=== PATIENT | female | born 1950 ===

== ENCOUNTER 2021-03-22 10:52 | Outpatient (REF) | payer MEDICARE, SELFPAY ==
[2021-03-22 14:46] LABS: Hematocrit 46.9 % (37.0-47.0); Hemoglobin 14.9 g/dl (12.0-16.0); Mean Corpuscular HGB Conc 31.8 g/dl (31.0-35.0); Mean Corpuscular Hemoglobin 30.5 pg (27.0-33.0); Mean Corpuscular Volume 96.1 fL (80.0-98.0); Mean Platelet Volume 9.7 fL (9.4-12.3); Platelet Count 269 X10*3/uL (160-400); Red Blood Count 4.88 X10*6/uL (4.20-5.50); Red Cell Distribution Width 14.6 % (11.0-16.0); White Blood Count 15.4 X10*3/uL (4.8-10.8)
[2021-03-22 15:06] LABS: Alanine Aminotransferase 20 U/L (0-31); Albumin Level 3.9 g/dL (3.5-5.0); Alkaline Phosphatase 88 U/L (39-117); Anion Gap 17 (12-20); Aspartate Amino Transferase 16 U/L (5-31); Bilirubin Total 0.4 mg/dL (0.0-1.0); Blood Urea Nitrogen 34 mg/dL (9-16); Calcium 9.5 mg/dL (8.4-10.2); Carbon Dioxide 25 mmol/L (22-29); Chloride 102 mmol/L (96-108); Estimated Glomerular Filt Rate 24; Glucose Random 147 mg/dL (60-115); Potassium 4.2 mmol/L (3.3-5.1); Sodium 140 mmol/L (135-145); Total Protein 7.8 g/dL (6.5-8.0)
[2021-03-22 15:12] LABS: B Type Natriuretic Peptide 261 pg/mL (<100)
== END 2021-03-22 10:53 | disposition home or self-care (01) ==
LOC: HO.HMGCLDS 10:52
PROVIDERS: Absent Provider Internal Medicine Cardiovascular Disease; PCP Internal Medicine; Visit Provider Internal Medicine
DX: I11.0 Hypertensive heart disease with heart failure (principal); I50.9 Heart failure, unspecified
CPT/HCPCS: 36415; 80053; 83880; 85027

== ENCOUNTER 2023-01-22 11:02 | Outpatient (AMB) | payer MEDICARE, SELFPAY ==
[2023-01-22 11:17] VITALS: BP 102/66; PULSE 54; O2SAT 99; BMI 31.4
--- NOTE | 2023-01-22 11:17 | A.OFFPC_ITS ---
Vital Signs 01/22/23 11:17 Height 5 ft 5 in Weight 189 lb BMI 31.4 BP 102/66 Blood Pressure Location Lt brachial Position Sitting Pulse 54 Pulse Source Pulse Oximeter Pulse Oximetry (%) 99 Oxygen Delivery Method Room Air Intake Visit Reasons: Hospital follow up Intake Note: Pt is here today for Hospital follow up visit. Pt states that she has fallen twice since she got out of the hospital on Sunday. Allergies No Known Allergies Allergy (Verified 01/22/23 11:20) Medication List - Last Reconciled 01/22/23 by Courtney Ding MD albuterol sulfate 2.5 mg inhalation Q4-6H PRN amlodipine 10 mg PO DAILY aspirin 81 mg PO DAILY atorvastatin 80 mg PO DAILY carvedilol 12.5 mg PO BID clonidine HCl 0.05 mg PO TID mxxrgcxkebe-aqfqfgbqq-dzkchnug 200-62.5-25 mcg 1 inh inhalation DAILY furosemide 20 mg PO DAILY hydralazine 25 mg PO TID isosorbide mononitrate ER 30 mg PO DAILY melatonin 1 mg PO BEDTIME PRN mirtazapine 15 mg PO BEDTIME omeprazole 20 mg PO DAILY prednisone 10 mg PO BID tramadol 100 mg PO BEDTIME trazodone 50 mg PO BEDTIME Tobacco use date assessed: 01/22/23 Fall risk assessment: 2 + Falls in past year Last assessed Fall Risk: 01/22/23 Dental Screening Dental Screen Date: 01/22/23 Did you have a dental visit in the last 12 months?: No Did you have a dental problem in the last 6 months where you did not have access to dental care?: No Was dental information given to patient?: Patient declined [facility] Hospital follow up HPI Details Pt presents for f/u of hospitalization for acute respiratory failure/CHF with EF 35%, and uncontrolled hypertension due to medication noncompliance for 1 year. Pt f/u with rheumatology rheumatoid arthritis treated with prednisone. [facility] Medical History CKD (chronic kidney disease), stage IV Rheumatoid arthritis COPD (chronic obstructive pulmonary disease) CAD (coronary artery disease) CHF (congestive heart failure) Family History Father Hypertension Heart attack Mother Hypertension Cancer of kidney Diabetes Social History Housing: House Patient Tobacco Use Status: Current everyday Tobacco user Cigarettes Per Day: 5 e-Cigarette/Vaping Use: Never Used Current occupational status: retired Cognitive needs: No Hearing needs: No Vision needs: Yes Questionnaire Thrive Questionnaire Date Thrive assessed: 03/04/21 AUDIT C Alcohol Use Questionnaire (AUDIT-C) 1. How often do you have a drink containing alcohol?: Never 3. How often do you have six or more drinks on one occasion?: Never Total Score: 0 Review of Systems Const All systems reviewed & are unremarkable except as noted in HPI and below Reports no additional complaints Eyes Reports no additional complaints ENT Reports no additional complaints Card Reports no additional complaints Resp Reports no additional complaints GI Reports no additional complaints Physical exam (Primary Care) Vital Signs: Last Vital Signs Pulse 54 01/22/23 11:17 BP 102/66 01/22/23 11:17 Pulse Ox 99 01/22/23 11:17 Oxygen Delivery Method Room Air 01/22/23 11:17 BMI result Body Mass Index 31.4 Tobacco/Smoking Status: Tobacco use Status Tobacco use date assessed 01/22/23 01/22/23 11:42 Patient Tobacco Use Status Current everyday Tobacco 01/22/23 11:42 e-Cigarette/Vaping Use Never Used 01/22/23 11:42 Thrive Assessment: Date of Thrive Assessment Date Thrive assessed 03/04/21 01/22/23 11:42 Const General: no acute distress HENMT Ears: hearing grossly normal bilaterally Eyes General: appearance normal, both eyes and all related structures Resp Effort & Inspection: normal respiratory effort Auscultation: clear to auscultation bilaterally Cardio Rhythm: regular rhythm Heart sounds: S1 normal heart sound present and S2 normal heart sound present GI Inspection: Yes normal to inspection Palpation (GI): Soft to palpation Percussion: Yes normal to percussion Auscultation: normal bowel sounds Assessment and Plan Assessment & Plan (1) CKD (chronic kidney disease), stage IV: Comment: Follow-up with nephrology Code(s): N18.4 - Chronic kidney disease, stage 4 (severe) Plan: Avoid NSAIDs and dehydration monitor renal function and follow-up with nephro logy (2) CAD (coronary artery disease): Comment: S/P stent LAD 02/08, Code(s): I25.10 - Atherosclerotic heart disease of [place] coronary artery without angina pectoris Plan: Continue atorvastatin (3) CHF (congestive heart failure): Comment: Echo EF 25 %. 02/08, f/u [facility] cardiology Code(s): I50.9 - Heart failure, unspecified Plan: Continue Coreg, isosorbide and hydralazine and furosemide follow-up with [facility] Cardiology (4) Essential hypertension: Code(s): I10 - Essential (primary) hypertension Plan: Continue current medications and follow-up with nephrology and cardiology (5) COPD (chronic obstructive pulmonary disease): Code(s): J44.9 - Chronic obstructive pulmonary disease, unspecified Plan: Continue Trelegy Orders: Orders TSH reflex Free T4 1 Month I10 - Essential (primary) hypertension, I25.10 - Atherosclerotic heart disease of [place] coronary artery without angina pectoris, I50.9 - Heart failure, unspecified, J44.9 - Chronic obstructive pulmonary disease, unspecified, N18.4 - Chronic kidney disease, stage 4 (severe) Comprehensive [place]. Panel Fast 1 Month I10 - Essential (primary) hypertension, I25.10 - Atherosclerotic heart disease of [place] coronary artery without angina pectoris, I50.9 - Heart failure, unspecified, J44.9 - Chronic obstructive pulmonary disease, unspecified, N18.4 - Chronic kidney disease, stage 4 (severe) Lipid Panel 1 Month I10 - Essential (primary) hypertension, I25.10 - Atherosclerotic heart disease of [place] coronary artery without angina pectoris, I50.9 - Heart failure, unspecified, J44.9 - Chronic obstructive pulmonary disease, unspecified, N18.4 - Chronic kidney disease, stage 4 (severe) Complete Blood Count Auto Diff 1 Month I10 - Essential (primary) hypertension, I25.10 - Atherosclerotic heart disease of [place] coronary artery without angina pectoris, I50.9 - Heart failure, unspecified, J44.9 - Chronic obstructive pulmonary disease, unspecified, N18.4 - Chronic kidney disease, stage 4 (severe) Vitamin D 25-OH Total 1 Month I10 - Essential (primary) hypertension, I25.10 - Atherosclerotic heart disease of [place] coronary artery without angina pectoris, I50.9 - Heart failure, unspecified, J44.9 - Chronic obstructive pulmonary disease, unspecified, N18.4 - Chronic kidney disease, stage 4 (severe) Medications: New mirtazapine 15 mg PO BEDTIME 90 tabs 0RF Coding Level of Care Code Est Pt Level 4 (28382) Diagnoses CKD (chronic kidney disease), stage IV N18.4 CAD (coronary artery disease) I25.10 CHF (congestive heart failure) I50.9 Essential hypertension I10 COPD (chronic obstructive pulmonary disease) J44.9
== END 2023-01-22 15:38 | disposition home or self-care (01) ==
PROVIDERS: PCP Internal Medicine; Visit Provider Internal Medicine
DX: I13.0 Hypertensive heart and chronic kidney disease with heart failure and stage 1 through stage 4 chronic kidney disease, or unspecified chronic kidney disease (principal); N18.4 Chronic kidney disease, stage 4 (severe); I50.9 Heart failure, unspecified; J44.9 Chronic obstructive pulmonary disease, unspecified; I25.10 Atherosclerotic heart disease of native coronary artery without angina pectoris
CPT/HCPCS: 99214

== ENCOUNTER 2023-02-20 11:34 | Outpatient (AMB) | payer MEDICARE, SELFPAY ==
[2023-02-20 11:49] VITALS: BP 108/76; PULSE 57; O2SAT 98; BMI 30.8
--- NOTE | 2023-02-20 11:49 | MHC.PC.OV ---
Vital Signs 02/20/23 11:49 Height 5 ft 5 in Weight 185 lb BMI 30.8 BP 108/76 Blood Pressure Location Lt brachial Position Sitting Pulse 57 Pulse Source Pulse Oximeter Pulse Oximetry (%) 98 Oxygen Delivery Method Room Air Intake Visit Reasons: 1 month follow up Intake Note: Pt is here today for 1 month follow up visit. Allergies No Known Allergies Allergy (Verified 02/20/23 11:56) Medication List - Last Reconciled 02/20/23 by Courtney Ding MD albuterol sulfate 2.5 mg inhalation Q4-6H PRN amlodipine 10 mg PO DAILY aspirin 81 mg PO DAILY atorvastatin 80 mg PO DAILY carvedilol 12.5 mg PO BID clonidine HCl 0.05 mg PO TID kxvowomqheh-qgzxujjzu-lsvcwois 200-62.5-25 mcg 1 inh inhalation DAILY furosemide 20 mg PO DAILY hydralazine 25 mg PO TID isosorbide mononitrate ER 30 mg PO DAILY melatonin 1 mg PO BEDTIME PRN mirtazapine 15 mg PO BEDTIME omeprazole 20 mg PO DAILY prednisone 10 mg PO BID tramadol 100 mg PO BEDTIME trazodone 50 mg PO BEDTIME Tobacco use date assessed: 02/20/23 Fall risk assessment: 2 + Falls in past year Last assessed Fall Risk: 02/20/23 Dental Screening Dental Screen Date: 02/20/23 Did you have a dental visit in the last 12 months?: No Did you have a dental problem in the last 6 months where you did not have access to dental care?: No Was dental information given to patient?: Patient declined HPI 1 month follow up HPI Details Patient presents for the follow-up of CHF chronic kidney disease stage 4 hypertension COPD. Patient complains of feeling generally tired and not motivated getting out of bed. She denies PND orthopnea but reports dyspnea on exertion unchanged for the last 2 years. Patient has been using supplemental O2 when ambulating. Patient complains of feeling depressed but denies suicidal ideation. She reports decreased appetite, eating 1 meal a day patient follows up with Cardiology for cardiomyopathy and renal for stage IV kidney disease. [facility] Medical History (Updated 02/20/23 @ 12:43 by Courtney Ding MD) CKD (chronic kidney disease), stage IV Rheumatoid arthritis COPD (chronic obstructive pulmonary disease) CAD (coronary artery disease) CHF (congestive heart failure) Family History Father Hypertension Heart attack Mother Hypertension Cancer of kidney Diabetes Social History Housing: House Patient Tobacco Use Status: Current everyday Tobacco user Tobacco use type: Cigarette Cigarettes Per Day: 5 e-Cigarette/Vaping Use: Never Used Current occupational status: retired Cognitive needs: No Hearing needs: No Vision needs: Yes Questionnaire PHQ-9 Over the last 2 weeks, how often have you been bothered by any of the following problems? 1. Little interest or pleasure in doing things: nearly every day 2. Feeling down, depressed, or hopeless: nearly every day 3. Trouble falling or staying asleep, or sleeping too much: nearly every day 4. Feeling tired or having little energy: nearly every day 5. Poor appetite or overeating: more than half the days 6. Feeling bad about yourself - or that you are a failure or have let yourself or your family down: several days 7. Trouble concentrating on things, such as reading the newspaper or watching television: more than half the days 8. Moving or speaking so slowly that other people could have noticed. Or the opposite - being so fidgety or restless that you have been moving around a lot more than usual: not at all 9. Thoughts that you would be better off or of hurting yourself in some way: not at all Total score: 17 Depression Screening Interpretation: Positive Depression Screening Done: Yes [id number] - PHQ-9 Billing: Yes Source: Developed by Drs. Jona Vogel, Mar Parish, Huan Lamb and colleagues, with an educational citlalli from [employer]. Thrive Questionnaire Date Thrive assessed: 02/20/23 I am a: Patient What is your living situation today?: I have a steady place to live Within the past 12 months, did the food you bought not last and you didn't have the money to get more?: Never true Within the past 12 months, did you worry whether your food would run out before you got money to buy more?: Never true Do you have trouble paying for medicines?: Yes Do you have trouble getting transportation to medical appointments?: No Do you have trouble paying your heating and electricity bill?: No Do you have trouble taking care of your child, family member or friend?: No Do you have trouble with day-to-day activities such as bathing, preparing meals, shopping, managing finances, etc.?: Yes Are you currently unemployed and looking for a job?: No Are you interested in more education?: No Please select the resources that you would like help with: Paying for medicine and Daily support AUDIT C Alcohol Use Questionnaire (AUDIT-C) 1. How often do you have a drink containing alcohol?: Never 3. How often do you have six or more drinks on one occasion?: Never Total Score: 0 PANCHO-7 AMB Questionnaire PANCHO-7 Date PANCHO - 7 assessed: 02/20/23 Feeling nervous, anxious, or on edge: 3 = Nearly every day Not being able to stop or control worryin = Nearly every day Worrying too much about different things: 3 = Nearly every day Trouble relaxin = More than half the days Being so restless that it is hard to sit still: 0 = Not at all Becoming easily annoyed or irritable: 1 = Several days Feeling afraid as if something awful might happen: 1 = Several days Total PANCHO-7 score (0-4 normal; 5-9 mild; 10-14 moderate; 15-21 severe): 13 Source: Developed by Drs. Jona Vogel, Mar Parish, Huan Lamb and colleagues, with an educational citlalli from [employer]. Review of Systems Const All systems reviewed & are unremarkable except as noted in HPI and below Reports no additional complaints Eyes Reports no additional complaints ENT Reports no additional complaints Card Reports no additional complaints Resp Reports no additional complaints GI Reports no additional complaints Physical exam (Primary Care) Vital Signs: Last Vital Signs Pulse 57 02/20/23 11:49 BP 108/76 02/20/23 11:49 Pulse Ox 98 02/20/23 11:49 Oxygen Delivery Method Room Air 02/20/23 11:49 BMI result Body Mass Index 30.8 Tobacco/Smoking Status: Tobacco use Status Tobacco use date assessed 02/20/23 02/20/23 12:00 Patient Tobacco Use Status Current everyday Tobacco 02/20/23 12:00 Tobacco use type Cigarette 02/20/23 12:00 e-Cigarette/Vaping Use Never Used 02/20/23 11:49 PHQ-9: PHQ-9 Score PHQ-9: Total score 17 02/20/23 12:03 Depression Screening Interpretation: Positive Thrive Assessment: Date of Thrive Assessment Date Thrive assessed 02/20/23 02/20/23 12:03 Const General: no acute distress HENMT Ears: hearing grossly normal bilaterally Throat: Yes posterior oropharynx normal Eyes General: appearance normal, both eyes and all related structures Resp Effort & Inspection: normal respiratory effort Auscultation: crackles and diminished lung sounds Cardio Rhythm: regular rhythm Heart sounds: S1 normal heart sound present and S2 normal heart sound present GI Inspection: Yes normal to inspection Palpation (GI): Soft to palpation Extrem General: Yes no clubbing, cyanosis or edema Assessment and Plan Assessment & Plan (1) CHF (congestive heart failure): Comment: Echo EF 25 %. 02/08, f/u [facility] cardiology Code(s): I50.9 - Heart failure, unspecified Plan: Continue current medications follow-up with Cardiology (2) Weakness: Code(s): R53.1 - Weakness Plan: Check comprehensive panel CBC BNP referred to physical therapy to improve balance and stamina (3) COPD (chronic obstructive pulmonary disease): Comment: Continue Trelegy and supplemental O2 Code(s): J44.9 - Chronic obstructive pulmonary disease, unspecified (4) Essential hypertension: Code(s): I10 - Essential (primary) hypertension Plan: Continue current medications, patient's monitored by Nephrology (5) CKD (chronic kidney disease), stage IV: Comment: Follow-up with nephrology Code(s): N18.4 - Chronic kidney disease, stage 4 (severe) Plan: Monitor renal function avoid NSAIDs and follow-up with nephrology (6) Rheumatoid arthritis: Comment: on Prednisone x 15 yrs Code(s): M06.9 - Rheumatoid arthritis, unspecified (7) Depression: Code(s): F32.A - Depression, unspecified Plan: Continue trazodone and restart mirtazapine. Patient declined counselling. (8) Poor balance: Code(s): R26.89 - Other abnormalities of gait and mobility Orders: Orders Comprehensive Met. Panel Today I10 - Essential (primary) hypertension, I25.10 - Atherosclerotic heart disease of [place] coronary artery without angina pectoris, I50.9 - Heart failure, unspecified, N18.4 - Chronic kidney disease, stage 4 (severe) Hemoglobin A1c Today I10 - Essential (primary) hypertension, I25.10 - Atherosclerotic heart disease of [place] coronary artery without angina pectoris, I50.9 - Heart failure, unspecified, N18.4 - Chronic kidney disease, stage 4 (severe) B Type Natriuretic Peptide Today I50.9 - Heart failure, unspecified PT Evaluation and Treatment Today R26.89 - Other abnormalities of gait and mobility, R53.1 - Weakness Complete Blood Count Auto Diff Today I10 - Essential (primary) hypertension, I25.10 - Atherosclerotic heart disease of [place] coronary artery without angina pectoris, I50.9 - Heart failure, unspecified, N18.4 - Chronic kidney disease, stage 4 (severe) Medications: Refilled mirtazapine 15 mg PO BEDTIME 90 tabs 1RF Coding Level of Care Code Est Pt Level 4 (28689) Diagnoses CHF (congestive heart failure) I50.9 Weakness R53.1 COPD (chronic obstructive pulmonary disease) J44.9 Essential hypertension I10 CKD (chronic kidney disease), stage IV N18.4 Rheumatoid arthritis M06.9 Depression F32.A Poor balance R26.89
== END 2023-02-20 12:35 | disposition home or self-care (01) ==
PROVIDERS: PCP Internal Medicine; Visit Provider Internal Medicine
DX: I12.9 Hypertensive chronic kidney disease with stage 1 through stage 4 chronic kidney disease, or unspecified chronic kidney disease (principal); I50.9 Heart failure, unspecified; J44.9 Chronic obstructive pulmonary disease, unspecified; N18.4 Chronic kidney disease, stage 4 (severe); M06.9 Rheumatoid arthritis, unspecified; R53.1 Weakness; F32.A Depression, unspecified; R26.89 Other abnormalities of gait and mobility
CPT/HCPCS: 99214

== ENCOUNTER 2023-02-20 12:35 | Outpatient (REF) | payer MEDICARE, SELFPAY ==
[2023-02-20 16:08] LABS: MANUAL DIFF FLAG NO
[2023-02-20 16:10] LABS: Basophils Percent Auto 0.1 % (0-2); Eosinophils Absolute Auto 0.1 X10*3/uL (0.0-0.4); Eosinophils Percent Auto 0.6 % (0-4); Hematocrit 44.8 % (37.0-47.0); Hemoglobin 14.4 g/dl (12.0-16.0); Imm Gran Abs Auto 0.09 X10*3/uL (0.00-0.03); Imm Gran Pct Auto 0.6 % (0.0-0.4); Lymphocytes Percent Auto 14.3 % (20-40); Mean Corpuscular HGB Conc 32.1 g/dl (31.0-35.0); Mean Corpuscular Hemoglobin 29.6 pg (27.0-33.0); Mean Corpuscular Volume 92.2 fL (80.0-98.0); Mean Platelet Volume 9.3 fL (9.4-12.3); Monocytes Absolute Auto 0.8 X10*3/uL (0.1-1.2); Monocytes Percent Auto 5.7 % (2-11); Neutrophils Percent Auto 78.7 % (45-73); Platelet Count 226 X10*3/uL (160-400); Red Blood Count 4.86 X10*6/uL (4.20-5.50); Red Cell Distribution Width 15.1 % (11.0-16.0); White Blood Count 13.9 X10*3/uL (4.8-10.8)
[2023-02-20 16:19] LABS: Estimated Average Glucose 120 mg/dL; Hemoglobin A1C 150.8516 umol/L; Hemoglobin A1c % 5.8 % (<6.0)
[2023-02-20 16:23] LABS: B Type Natriuretic Peptide 276 pg/mL (<100)
[2023-02-20 16:27] LABS: Alanine Aminotransferase 12 U/L (0-31); Albumin Level 3.4 g/dL (3.5-5.0); Alkaline Phosphatase 83 U/L (39-117); Anion Gap 12 (12-20); Aspartate Amino Transferase 13 U/L (5-31); Bilirubin Total 0.3 mg/dL (0.0-1.0); Blood Urea Nitrogen 28 mg/dL (9-16); Calcium 9.1 mg/dL (8.4-10.2); Carbon Dioxide 26 mmol/L (22-29); Chloride 105 mmol/L (96-108); Cholesterol 101 mg/dL (<200); Estimated Glomerular Filt Rate 38; Glucose Fasting 120 mg/dL (60-99); Glucose Random 120 mg/dL (60-115); HDL Cholesterol 38 mg/dL (>40); LDL Cholesterol Calculated 35 mg/dL (<100); Potassium 3.2 mmol/L (3.3-5.1); Sodium 140 mmol/L (135-145); Total Protein 7.2 g/dL (6.5-8.0); Triglycerides 142 mg/dL (<150)
[2023-02-20 16:43] LABS: TSH reflex Free T4 0.84 uIU/mL (0.32-4.0); Vitamin D 25-OH Total 13.8 ng/mL (>30)
== END 2023-02-20 12:36 | disposition home or self-care (01) ==
LOC: HO.HMGCLDS 12:35
PROVIDERS: PCP Internal Medicine; Visit Provider Internal Medicine
DX: I13.0 Hypertensive heart and chronic kidney disease with heart failure and stage 1 through stage 4 chronic kidney disease, or unspecified chronic kidney disease (principal); I50.9 Heart failure, unspecified; N18.4 Chronic kidney disease, stage 4 (severe); I25.10 Atherosclerotic heart disease of native coronary artery without angina pectoris; J44.9 Chronic obstructive pulmonary disease, unspecified
CPT/HCPCS: 36415; 80053; 80061; 82306; 83036; 83880; 84443; 85025

== ENCOUNTER 2023-03-02 13:46 | Outpatient (REF) | payer MEDICARE, SELFPAY ==
[2023-03-02 16:37] LABS: Anion Gap 13 (12-20); Blood Urea Nitrogen 32 mg/dL (9-16); Calcium 9.5 mg/dL (8.4-10.2); Carbon Dioxide 24 mmol/L (22-29); Chloride 108 mmol/L (96-108); Estimated Glomerular Filt Rate 40; Glucose Random 98 mg/dL (60-115); Potassium 3.5 mmol/L (3.3-5.1); Sodium 141 mmol/L (135-145)
== END 2023-03-02 13:47 | disposition home or self-care (01) ==
LOC: HO.HMGCLDS 13:46
PROVIDERS: PCP Internal Medicine; Visit Provider Internal Medicine
DX: E87.6 Hypokalemia (principal)
CPT/HCPCS: 36415; 80048

== ENCOUNTER 2023-03-12 13:15 | Outpatient (REF) | payer MEDICARE, SELFPAY ==
[2023-03-12 16:14] LABS: MANUAL DIFF FLAG NO
[2023-03-12 16:25] LABS: Basophils Absolute Auto 0.1 X10*3/uL (0.0-0.2); Basophils Percent Auto 0.4 % (0-2); Eosinophils Absolute Auto 0.2 X10*3/uL (0.0-0.4); Hematocrit 45.9 % (37.0-47.0); Hemoglobin 14.6 g/dl (12.0-16.0); Imm Gran Abs Auto 0.05 X10*3/uL (0.00-0.03); Imm Gran Pct Auto 0.4 % (0.0-0.4); Lymphocytes Absolute Auto 3.1 X10*3/uL (1.2-4.9); Lymphocytes Percent Auto 27.8 % (20-40); Mean Corpuscular HGB Conc 31.8 g/dl (31.0-35.0); Mean Corpuscular Hemoglobin 29.7 pg (27.0-33.0); Mean Corpuscular Volume 93.3 fL (80.0-98.0); Mean Platelet Volume 9.5 fL (9.4-12.3); Monocytes Absolute Auto 0.7 X10*3/uL (0.1-1.2); Monocytes Percent Auto 6.5 % (2-11); Neutrophils Percent Auto 62.9 % (45-73); Platelet Count 246 X10*3/uL (160-400); Red Blood Count 4.92 X10*6/uL (4.20-5.50); Red Cell Distribution Width 16.8 % (11.0-16.0); White Blood Count 11.2 X10*3/uL (4.8-10.8)
[2023-03-12 16:34] LABS: Anion Gap 15 (12-20); Blood Urea Nitrogen 23 mg/dL (9-16); Calcium 8.9 mg/dL (8.4-10.2); Carbon Dioxide 24 mmol/L (22-29); Chloride 109 mmol/L (96-108); Estimated Glomerular Filt Rate 39; Glucose Random 101 mg/dL (60-115); Potassium 3.8 mmol/L (3.3-5.1); Sodium 144 mmol/L (135-145)
== END 2023-03-12 13:16 | disposition home or self-care (01) ==
LOC: HO.HMGCLDS 13:15
PROVIDERS: PCP Internal Medicine; Visit Provider Internal Medicine
DX: E87.6 Hypokalemia (principal); I25.10 Atherosclerotic heart disease of native coronary artery without angina pectoris; I13.0 Hypertensive heart and chronic kidney disease with heart failure and stage 1 through stage 4 chronic kidney disease, or unspecified chronic kidney disease; N18.4 Chronic kidney disease, stage 4 (severe); I50.9 Heart failure, unspecified
CPT/HCPCS: 36415; 80048; 85025

== ENCOUNTER 2023-03-28 11:23 | Outpatient (REF) | payer MEDICARE, SELFPAY ==
[2023-03-28 13:53] LABS: Anion Gap 12 (12-20); Blood Urea Nitrogen 27 mg/dL (9-16); Calcium 8.7 mg/dL (8.4-10.2); Carbon Dioxide 24 mmol/L (22-29); Chloride 110 mmol/L (96-108); Estimated Glomerular Filt Rate 38; Glucose Random 97 mg/dL (60-115); Potassium 3.6 mmol/L (3.3-5.1); Sodium 142 mmol/L (135-145)
[2023-03-28 14:14] LABS: Vitamin D 25-OH Total 28.6 ng/mL (>30)
== END 2023-03-28 11:24 | disposition home or self-care (01) ==
LOC: HO.HMGCLDS 11:23
PROVIDERS: PCP Internal Medicine; Visit Provider Internal Medicine
DX: E55.9 Vitamin D deficiency, unspecified (principal); E87.6 Hypokalemia
CPT/HCPCS: 36415; 80048; 82306

== ENCOUNTER 2023-05-22 11:50 | Outpatient (AMB) | payer MEDICARE, SELFPAY ==
[2023-05-22 12:26] VITALS: BP 92/60; PULSE 58; O2SAT 97; BMI 32.8
--- NOTE | 2023-05-22 12:26 | A.OFFPC_ITS ---
Vital Signs 05/22/23 12:26 Height 5 ft 5 in Weight 197 lb BMI 32.8 BP 92/60 Blood Pressure Location Rt brachial Position Sitting Pulse 58 Pulse Source Pulse Oximeter Pulse Oximetry (%) 97 Oxygen Delivery Method Room Air Intake Visit Reasons: 3 Month follow up Intake Note: Pt is here today for 3 months follow up visit. Allergies No Known Allergies Allergy (Verified 05/22/23 12:30) Medication List - Last Reconciled 05/22/23 by Courtney Ding MD albuterol sulfate 2.5 mg inhalation Q4-6H PRN amlodipine 10 mg PO DAILY aspirin 81 mg PO DAILY atorvastatin 80 mg PO DAILY carvedilol 12.5 mg PO BID cholecalciferol (vitamin D3) 75 mcg PO DAILY clonidine HCl 0.05 mg PO TID xscexmvrkxh-aaninjrgk-bltvnvjv 200-62.5-25 mcg 1 inh inhalation DAILY furosemide 20 mg PO DAILY hydralazine 25 mg PO TID isosorbide mononitrate ER 30 mg PO DAILY melatonin 1 mg PO BEDTIME PRN mirtazapine 15 mg PO BEDTIME nebulizers As directed omeprazole 20 mg PO DAILY potassium chloride ER 10 mEq PO DAILY prednisone 5 mg PO BID sertraline 50 mg PO DAILY tramadol 100 mg PO BEDTIME trazodone 50 mg PO BEDTIME Tobacco use date assessed: 02/20/23 Dental Screening Dental Screen Date: 02/20/23 HPI 3 Month follow up HPI Details Patient presents for the follow-up of hyperlipidemia hypertension ischemic cardiomyopathy COPD and chronic depression. Patient complains of feeling tired having dyspnea on minimal exertion at home when walking. Patient denies PND orthopnea chest pain palpitations cough wheezing. She has been sleeping better but her mood has not improved on mirtazapine. Patient gained 12 lb in the last 2 months. Patient follows up with basic Cardiology and Nephrology. [facility] Medical History (Updated 05/22/23 @ 15:01 by Courtney Ding MD) CKD (chronic kidney disease), stage IV Rheumatoid arthritis COPD (chronic obstructive pulmonary disease) CAD (coronary artery disease) CHF (congestive heart failure) Family History Father Hypertension Heart attack Mother Hypertension Cancer of kidney Diabetes Social History Housing: House Patient Tobacco Use Status: Current everyday Tobacco user Tobacco use type: Cigarette Cigarettes Per Day: 5 e-Cigarette/Vaping Use: Never Used service: No Current occupational status: retired Cognitive needs: No Hearing needs: No Vision needs: Yes Questionnaire Thrive Questionnaire Date Thrive assessed: 02/20/23 PANCHO-7 AMB Questionnaire PANCHO-7 Date PANCHO - 7 assessed: 02/20/23 Source: Developed by Drs. Jona Vogel, Mar Parish, Huan Lamb and colleagues, with an educational citlalli from [employer]. Review of Systems Const All systems reviewed & are unremarkable except as noted in HPI and below Reports no additional complaints Eyes Reports no additional complaints ENT Reports no additional complaints Card Reports no additional complaints Resp Reports no additional complaints GI Reports no additional complaints Reports no additional complaints Musc Reports no additional complaints Physical exam (Primary Care) Vital Signs: Last Vital Signs Pulse 58 05/22/23 12:26 BP 92/60 05/22/23 12:26 Pulse Ox 97 05/22/23 12:26 Oxygen Delivery Method Room Air 05/22/23 12:26 BMI result Body Mass Index 32.8 Tobacco/Smoking Status: Tobacco use Status Tobacco use date assessed 02/20/23 05/22/23 12:26 Patient Tobacco Use Status Current everyday Tobacco 05/22/23 12:26 Tobacco use type Cigarette 05/22/23 12:26 e-Cigarette/Vaping Use Never Used 05/22/23 12:26 Thrive Assessment: Date of Thrive Assessment Date Thrive assessed 02/20/23 05/22/23 12:26 Const General: no acute distress HENMT Head: Yes normal to inspection Face and sinus: Yes normal facial exam Neck Neck: Yes supple Resp Effort & Inspection: normal respiratory effort Auscultation: rales (1/3 up bilaterally) Cardio Rhythm: regular rhythm Heart sounds: S1 normal heart sound present and S2 normal heart sound present GI Inspection: Yes normal to inspection Palpation (GI): Soft to palpation Extrem General: Yes no clubbing, cyanosis or edema Assessment and Plan Assessment & Plan (1) CHF (congestive heart failure): Comment: Echo EF 25 %. 02/08, ECHO 01/11 mild concentric left ventricular hypertrophy, reduced left ventricular systolic function with ejection fraction of 30-35%, global moderate hypokinesis, apical septal segments are akinetic and mildly aneurysmal, no significant valvular abnormalities, right ventricle normal size and function, comparison to June 2021, there is interval decline in global left ventricular systolic function, /u [facility] cardiology [employer] Code(s): I50.9 - Heart failure, unspecified Plan: Patient has been on carvedilol, hydralazine with isosorbide for ischemic cardiomyopathy, furosemide will be increased to 40 mg a day for 3 days and patient was advised to monitor her weight daily, BNP will be checked in 2 weeks. Patient may be a candidate for SGLT 2i (2) CKD (chronic kidney disease), stage IV: Comment: Follow-up with nephrology Code(s): N18.4 - Chronic kidney disease, stage 4 (severe) Plan: Avoid nephrotoxins monitor renal function, obtain records from Nephrology (3) CAD (coronary artery disease): Comment: S/P stent LAD 02/08, medically managed Code(s): I25.10 - Atherosclerotic heart disease of [place] coronary artery without angina pectoris Plan: Continue high dose of statin carvedilol and aspirin (4) Essential hypertension: Code(s): I10 - Essential (primary) hypertension Plan: Continue current medications follow-up with nephrology (5) COPD (chronic obstructive pulmonary disease): Comment: Continue Trelegy and supplemental O2 Code(s): J44.9 - Chronic obstructive pulmonary disease, unspecified Plan: Continue Trelegy and supplemental O2 (6) Rheumatoid arthritis: Comment: on Prednisone x 15 yrs Code(s): M06.9 - Rheumatoid arthritis, unspecified Plan: Follow-up with rheumatology (7) Depression: Code(s): F32.A - Depression, unspecified Plan: Patient gained 12 lb on mirtazapine and has not had significant improvement in her depression symptoms. She will taper it off and try sertraline 50 mg a day patient will continue trazodone for insomnia. She declined counseling Orders: Orders Basic Metabolic Panel 2 Weeks I25.10 - Atherosclerotic heart disease of [place] coronary artery without angina pectoris, I50.9 - Heart failure, unspecified, N18.4 - Chronic kidney disease, stage 4 (severe) Medications: New sertraline 50 mg PO DAILY 90 tabs 0RF nebulizers As directed 1 ea 0RF Coding Level of Care Code Est Pt Level 4 (61928) Diagnoses CHF (congestive heart failure) I50.9 CKD (chronic kidney disease), stage IV N18.4 CAD (coronary artery disease) I25.10 Essential hypertension I10 COPD (chronic obstructive pulmonary disease) J44.9 Rheumatoid arthritis M06.9 Depression F32.A
== END 2023-05-22 13:19 | disposition home or self-care (01) ==
PROVIDERS: PCP Internal Medicine; Visit Provider Internal Medicine
DX: I12.9 Hypertensive chronic kidney disease with stage 1 through stage 4 chronic kidney disease, or unspecified chronic kidney disease (principal); N18.4 Chronic kidney disease, stage 4 (severe); I50.9 Heart failure, unspecified; J44.9 Chronic obstructive pulmonary disease, unspecified; M06.9 Rheumatoid arthritis, unspecified; I25.10 Atherosclerotic heart disease of native coronary artery without angina pectoris; F32.A Depression, unspecified
CPT/HCPCS: 99214

== ENCOUNTER 2023-06-26 11:17 | Outpatient (AMB) | payer MEDICARE, SELFPAY ==
[2023-06-26 11:29] VITALS: BP 124/80; PULSE 71; O2SAT 94; BMI 32.8
--- NOTE | 2023-06-26 11:29 | A.OFFPC_ITS ---
Vital Signs 06/26/23 11:29 Height 5 ft 5 in Weight 197 lb BMI 32.8 BP 124/80 Blood Pressure Location Lt brachial Position Sitting Pulse 71 Pulse Source Pulse Oximeter Pulse Oximetry (%) 94 Oxygen Delivery Method Room Air Intake Visit Reasons: 1M F/U Intake Note: Pt is here today for 1 month follow up visit. Allergies No Known Allergies Allergy (Verified 06/26/23 11:45) Medication List - Last Reconciled 06/26/23 by Courtney Ding MD albuterol sulfate 2.5 mg inhalation Q4-6H PRN amlodipine 10 mg PO DAILY aspirin 81 mg PO DAILY atorvastatin 80 mg PO DAILY carvedilol 12.5 mg PO BID cholecalciferol (vitamin D3) 75 mcg PO DAILY clonidine HCl 0.05 mg PO TID ftosgxqslyj-fkvxmtnqc-jjxsrwbp 200-62.5-25 mcg 1 inh inhalation DAILY furosemide 20 mg PO DAILY hydralazine 25 mg PO TID isosorbide mononitrate ER 30 mg PO DAILY melatonin 1 mg PO BEDTIME PRN mirtazapine 15 mg PO BEDTIME nebulizers As directed omeprazole 20 mg PO DAILY potassium chloride ER 10 mEq PO DAILY prednisone 5 mg PO BID sertraline 50 mg PO DAILY tramadol 100 mg PO BEDTIME trazodone 50 mg PO BEDTIME Tobacco use date assessed: 06/26/23 Dental Screening Dental Screen Date: 02/20/23 HPI 1M F/U HPI Details Pt presents for f/u O2 dependent COPD, heart failure with reduced ejection fraction, hypertension hyperlipidemia chronic anxiety and depression. Patient is still complains of dyspnea on exertion but also having low energy and interest in daily activities. Insomnia improved on sertraline and patient denies suicidal ideation. She has been more engaged with her son. Patient continues to smoke half a pack a day. [facility] Medical History CKD (chronic kidney disease), stage IV Rheumatoid arthritis COPD (chronic obstructive pulmonary disease) CAD (coronary artery disease) CHF (congestive heart failure) Family History Father Hypertension Heart attack Mother Hypertension Cancer of kidney Diabetes Social History Housing: House Patient Tobacco Use Status: Current everyday Tobacco user Tobacco use type: Cigarette Cigarettes Per Day: 5 e-Cigarette/Vaping Use: Never Used service: No Current occupational status: retired Cognitive needs: No Hearing needs: No Vision needs: Yes Questionnaire Thrive Questionnaire Date Thrive assessed: 02/20/23 PANCHO-7 AMB Questionnaire PANCHO-7 Date PANCHO - 7 assessed: 02/20/23 Source: Developed by Drs. Jona Vogel, Mar Parish, Huan Lamb and colleagues, with an educational citlalli from [employer]. Review of Systems Const All systems reviewed & are unremarkable except as noted in HPI and below Eyes Reports no additional complaints Resp Reports no additional complaints GI Reports no additional complaints Reports no additional complaints Physical exam (Primary Care) Vital Signs: Last Vital Signs Pulse 71 06/26/23 11:29 BP 124/80 06/26/23 11:29 Pulse Ox 94 06/26/23 11:29 Oxygen Delivery Method Room Air 06/26/23 11:29 BMI result Body Mass Index 32.8 Tobacco/Smoking Status: Tobacco use Status Tobacco use date assessed 06/26/23 06/26/23 11:32 Patient Tobacco Use Status Current everyday Tobacco 06/26/23 11:32 Tobacco use type Cigarette 06/26/23 11:32 e-Cigarette/Vaping Use Never Used 06/26/23 11:32 Thrive Assessment: Date of Thrive Assessment Date Thrive assessed 02/20/23 06/26/23 11:32 Const General: no acute distress HENMT Head: Yes normal to inspection Neck Neck: Yes supple Resp Effort & Inspection: normal respiratory effort Auscultation: wheezes and diminished lung sounds Cardio Rhythm: regular rhythm Heart sounds: S1 normal heart sound present and S2 normal heart sound present GI Inspection: Yes normal to inspection Palpation (GI): Soft to palpation Auscultation: normal bowel sounds Assessment and Plan Assessment & Plan (1) CKD (chronic kidney disease), stage IV: Comment: Follow-up with nephrology Code(s): N18.4 - Chronic kidney disease, stage 4 (severe) Plan: Monitor renal function avoid nephrotoxin follow-up with nephrology (2) Depression: Code(s): F32.A - Depression, unspecified Plan: Continue Zoloft and patient will be referred to counseling (3) Rheumatoid arthritis: Comment: on Prednisone x 15 yrs Code(s): M06.9 - Rheumatoid arthritis, unspecified Plan: Follow-up with rheumatology (4) COPD (chronic obstructive pulmonary disease): Comment: Continue Trelegy and supplemental O2 Code(s): J44.9 - Chronic obstructive pulmonary disease, unspecified Plan: Tobacco quitting discussed with the patient. Continue Trelegy supplemental O2 and DuoNeb twice a day (5) CHF (congestive heart failure): Comment: Echo EF 25 %. 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(s): I50.9 - Heart failure, unspecified Plan: Continue current medications follow-up with Cardiology at [facility] Orders: Orders Basic Metabolic Panel Today N18.4 - Chronic kidney disease, stage 4 (severe) Medications: New furosemide 40 mg (2 x 20 mg) PO DAILY 180 tabs 1RF ipratropium-albuterol 0.5 mg-3 mg(2.5 mg base)/3 mL 3 mL inhalation BID 180 mL 3RF Discontinued mirtazapine Discontinued Reason: Doctor's Order 15 mg PO BEDTIME 90 tabs 1RF On Hold trazodone Hold Comment: Doctor's Order 50 mg PO BEDTIME 90 tabs 2RF Coding Level of Care Code Est Pt Level 4 (12561) Diagnoses CKD (chronic kidney disease), stage IV N18.4 Depression F32.A Rheumatoid arthritis M06.9 COPD (chronic obstructive pulmonary disease) J44.9 CHF (congestive heart failure) I50.9
== END 2023-06-26 14:56 | disposition home or self-care (01) ==
PROVIDERS: PCP Internal Medicine; Visit Provider Internal Medicine
DX: N18.4 Chronic kidney disease, stage 4 (severe) (principal); M06.9 Rheumatoid arthritis, unspecified; J44.9 Chronic obstructive pulmonary disease, unspecified; I50.9 Heart failure, unspecified; F32.A Depression, unspecified
CPT/HCPCS: 99214

== ENCOUNTER 2023-06-26 13:21 | Outpatient (REF) | payer MEDICARE, SELFPAY ==
[2023-06-26 17:18] LABS: Anion Gap 18 (12-20); Blood Urea Nitrogen 38 mg/dL (9-16); Calcium 9.4 mg/dL (8.4-10.2); Carbon Dioxide 22 mmol/L (22-29); Chloride 105 mmol/L (96-108); Estimated Glomerular Filt Rate 27; Glucose Random 111 mg/dL (60-115); Potassium 3.6 mmol/L (3.3-5.1); Sodium 141 mmol/L (135-145)
== END 2023-06-26 13:22 | disposition home or self-care (01) ==
LOC: HO.HMGCLDS 13:21
PROVIDERS: PCP Internal Medicine; Visit Provider Internal Medicine
DX: N18.4 Chronic kidney disease, stage 4 (severe) (principal)
CPT/HCPCS: 36415; 80048

== ENCOUNTER 2023-07-17 13:32 | Outpatient (REF) | payer MEDICARE, SELFPAY ==
[2023-07-17 16:21] LABS: Anion Gap 15 (12-20); Blood Urea Nitrogen 31 mg/dL (9-16); Calcium 8.9 mg/dL (8.4-10.2); Carbon Dioxide 25 mmol/L (22-29); Chloride 106 mmol/L (96-108); Estimated Glomerular Filt Rate 30; Glucose Random 94 mg/dL (60-115); Potassium 3.7 mmol/L (3.3-5.1); Sodium 142 mmol/L (135-145)
== END 2023-07-17 13:33 | disposition home or self-care (01) ==
LOC: HO.HMGCLDS 13:32
PROVIDERS: PCP Internal Medicine; Visit Provider Internal Medicine
DX: N18.4 Chronic kidney disease, stage 4 (severe) (principal)
CPT/HCPCS: 36415; 80048

== ENCOUNTER 2023-07-24 11:44 | Outpatient (AMB) | payer MEDICARE, SELFPAY ==
[2023-07-24 12:02] VITALS: BP 120/65; PULSE 75; O2SAT 95; BMI 33.8
--- NOTE | 2023-07-24 12:02 | A.OFFPC_ITS ---
Vital Signs 07/24/23 12:02 Height 5 ft 5 in Weight 203 lb 2 oz BMI 33.8 BP 120/65 Blood Pressure Location Rt brachial Position Sitting Pulse 75 Pulse Source Pulse Oximeter Pulse Oximetry (%) 95 Oxygen Delivery Method Room Air Intake Visit Reasons: 1M F/U per Allergies No Known Allergies Allergy (Verified 07/24/23 12:15) Medication List - Last Reconciled 07/24/23 by Courtney Ding MD albuterol sulfate 2.5 mg inhalation Q4-6H PRN amlodipine 10 mg PO DAILY aspirin 81 mg PO DAILY atorvastatin 80 mg PO DAILY carvedilol 12.5 mg PO BID cholecalciferol (vitamin D3) 75 mcg PO DAILY hbohsetuozm-lejjuefvr-hpqmygfr 200-62.5-25 mcg 1 inh inhalation DAILY furosemide 40 mg (2 x 20 mg) PO DAILY hydralazine 25 mg PO TID ipratropium-albuterol 0.5 mg-3 mg(2.5 mg base)/3 mL 3 mL inhalation BID isosorbide mononitrate ER 30 mg PO DAILY melatonin 1 mg PO BEDTIME PRN nebulizers As directed omeprazole 20 mg PO DAILY potassium chloride ER 10 mEq PO DAILY sertraline 50 mg PO DAILY tramadol 100 mg PO BEDTIME trazodone 50 mg PO BEDTIME Tobacco use date assessed: 07/24/23 Fall risk assessment: 2 + Falls in past year Last assessed Fall Risk: 07/24/23 Dental Screening Dental Screen Date: 07/24/23 Did you have a dental visit in the last 12 months?: No Did you have a dental problem in the last 6 months where you did not have access to dental care?: No Was dental information given to patient?: Patient has dentist HPI 1M F/U per HPI Details Patient presents for the follow-up on hypertension, COPD, chronic kidney disease stage 3/4, heart failure with reduced ejection fraction. Patient reports improved insomnia but still has been feeling depressed. Patient is not interested in counseling and denies suicidal ideation. [facility] Medical History CKD (chronic kidney disease), stage IV Rheumatoid arthritis COPD (chronic obstructive pulmonary disease) CAD (coronary artery disease) CHF (congestive heart failure) Family History Father Hypertension Heart attack Mother Hypertension Cancer of kidney Diabetes Social History Housing: House Patient Tobacco Use Status: Current everyday Tobacco user Tobacco use type: Cigarette Cigarettes Per Day: 5 e-Cigarette/Vaping Use: Never Used service: No Current occupational status: retired Cognitive needs: No Hearing needs: No Vision needs: Yes Questionnaire Thrive Questionnaire Date Thrive assessed: 02/20/23 AUDIT C Alcohol Use Questionnaire (AUDIT-C) 1. How often do you have a drink containing alcohol?: Never 3. How often do you have six or more drinks on one occasion?: Never Total Score: 0 Score Reviewed/Action Taken: Yes PANCHO-7 AMB Questionnaire PANCHO-7 Date PANCHO - 7 assessed: 02/20/23 Source: Developed by Drs. Jona Vogel, Mar Parish, Huan Lamb and colleagues, with an educational citlalli from [employer]. Review of Systems Const All systems reviewed & are unremarkable except as noted in HPI and below Eyes Reports no additional complaints ENT Reports no additional complaints Card Reports no additional complaints Resp Reports no additional complaints GI Reports no additional complaints Reports no additional complaints Physical exam (Primary Care) Vital Signs: Last Vital Signs Pulse 75 07/24/23 12:02 Pulse Ox 95 07/24/23 12:02 Oxygen Delivery Method Room Air 07/24/23 12:02 BMI result Body Mass Index 33.8 Tobacco/Smoking Status: Tobacco use Status Tobacco use date assessed 07/24/23 07/24/23 12:15 Patient Tobacco Use Status Current everyday Tobacco 07/24/23 12:13 Tobacco use type Cigarette 07/24/23 12:13 e-Cigarette/Vaping Use Never Used 07/24/23 12:13 Thrive Assessment: Date of Thrive Assessment Date Thrive assessed 02/20/23 07/24/23 12:13 Const General: no acute distress HENMT Head: Yes normal to inspection Resp Effort & Inspection: normal respiratory effort Auscultation: crackles and diminished lung sounds Cardio Rhythm: regular rhythm Heart sounds: S1 normal heart sound present and S2 normal heart sound present Extrem General: Yes no clubbing, cyanosis or edema Assessment and Plan Assessment & Plan (1) CHF (congestive heart failure): Comment: Echo EF 25 %. 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): I50.9 - Heart failure, unspecified Plan: Continue current medications follow-up with the Cardiology (2) CAD (coronary artery disease): Comment: S/P stent LAD 02/08, medically managed Code(s): I25.10 - Atherosclerotic heart disease of [place] coronary artery without angina pectoris Plan: Continue beta edyta and high-dose statin (3) CKD (chronic kidney disease), stage IV: Comment: Follow-up with nephrology Code(s): N18.4 - Chronic kidney disease, stage 4 (severe) Plan: Continue current medications follow-up with nephrology avoid nephrotoxins (4) COPD (chronic obstructive pulmonary disease): Comment: Continue Trelegy and supplemental O2 Code(s): J44.9 - Chronic obstructive pulmonary disease, unspecified Plan: Continue Trelegy and supplemental oxygen (5) Depression: Code(s): F32.A - Depression, unspecified Plan: Continue sertraline and trazodone as needed Orders: Orders Comprehensive [place]. Panel Fast 2 Months I25.10 - Atherosclerotic heart disease of [place] coronary artery without angina pectoris, I50.9 - Heart failure, unspecified, N18.4 - Chronic kidney disease, stage 4 (severe) Lipid Panel 2 Months I25.10 - Atherosclerotic heart disease of [place] coronary artery without angina pectoris, I50.9 - Heart failure, unspecified, N18.4 - Chronic kidney disease, stage 4 (severe) Complete Blood Count Auto Diff 2 Months I25.10 - Atherosclerotic heart disease of [place] coronary artery without angina pectoris, I50.9 - Heart failure, unspecified, N18.4 - Chronic kidney disease, stage 4 (severe) Hemoglobin A1c 2 Months I25.10 - Atherosclerotic heart disease of [place] coronary artery without angina pectoris, I50.9 - Heart failure, unspecified, N18.4 - Chronic kidney disease, stage 4 (severe) Medications: New hydralazine 50 mg PO BID 180 tabs 1RF Coding Level of Care Code Est Pt Level 4 (42559) Diagnoses CHF (congestive heart failure) I50.9 CAD (coronary artery disease) I25.10 CKD (chronic kidney disease), stage IV N18.4 COPD (chronic obstructive pulmonary disease) J44.9 Depression F32.A
== END 2023-07-24 13:56 | disposition home or self-care (01) ==
PROVIDERS: PCP Internal Medicine; Visit Provider Internal Medicine
DX: I50.9 Heart failure, unspecified (principal); I25.10 Atherosclerotic heart disease of native coronary artery without angina pectoris; N18.4 Chronic kidney disease, stage 4 (severe); J44.9 Chronic obstructive pulmonary disease, unspecified; F32.A Depression, unspecified
CPT/HCPCS: 99214

== ENCOUNTER 2023-10-30 13:41 | Outpatient (AMB) | payer MEDICARE, SELFPAY ==
[2023-10-30 13:53] VITALS: BP 112/70; PULSE 64; O2SAT 96; BMI 33.8
--- NOTE | 2023-10-30 13:53 | A.OFFPC_ITS ---
Vital Signs 10/30/23 13:53 Height 5 ft 5 in Weight 203 lb BMI 33.8 BP 112/70 Blood Pressure Location Lt brachial Position Sitting Pulse 64 Pulse Source Pulse Oximeter Pulse Oximetry (%) 96 Oxygen Delivery Method Nasal Cannula Intake Visit Reasons: Hospital follow up Allergies No Known Allergies Allergy (Verified 10/30/23 13:55) Tobacco use date assessed: 07/24/23 Dental Screening Dental Screen Date: 07/24/23 HPI Hospital follow up HPI Details Pt presents for f/u hospitalization at [facility] and rehab for buttock abscess in September. Pt was discharged home 2 days ago and has been getting wound care by [facility] and her daughter. HTN and hyperlipid, chronic kidney disease stage 4, O2 the COPD, are stable on meds. [facility] Medical History CKD (chronic kidney disease), stage IV Rheumatoid arthritis COPD (chronic obstructive pulmonary disease) CAD (coronary artery disease) CHF (congestive heart failure) Family History Father Hypertension Heart attack Mother Hypertension Cancer of kidney Diabetes Social History Housing: House Patient Tobacco Use Status: Current everyday Tobacco user Tobacco use type: Cigarette Cigarettes Per Day: 5 e-Cigarette/Vaping Use: Never Used service: No Current occupational status: retired Cognitive needs: No Hearing needs: No Vision needs: Yes Questionnaire Thrive Questionnaire Date Thrive assessed: 10/30/23 I am a: Patient What is your living situation today?: I choose not to answer this question Within the past 12 months, did the food you bought not last and you didn't have the money to get more?: I choose not to answer this question Within the past 12 months, did you worry whether your food would run out before you got money to buy more?: I choose not to answer this question THRIVE Score: 0 PANCHO-7 AMB Questionnaire PANCHO-7 Date PANCHO - 7 assessed: 02/20/23 Source: Developed by Drs. Jona Vogel, Mar Parish, Huan Lamb and colleagues, with an educational citlalli from [employer]. Review of Systems Const All systems reviewed & are unremarkable except as noted in HPI and below Eyes Reports no additional complaints ENT Reports no additional complaints Card Reports no additional complaints Resp Reports no additional complaints GI Reports no additional complaints Reports no additional complaints Physical exam (Primary Care) Vital Signs: Last Vital Signs Pulse 64 10/30/23 13:53 BP 112/70 10/30/23 13:53 Pulse Ox 96 10/30/23 13:53 Oxygen Delivery Method Nasal Cannula 10/30/23 13:53 BMI result Body Mass Index 33.8 Tobacco/Smoking Status: Tobacco use Status Tobacco use date assessed 07/24/23 10/30/23 13:59 Patient Tobacco Use Status Current everyday Tobacco 10/30/23 13:59 Tobacco use type Cigarette 10/30/23 13:59 e-Cigarette/Vaping Use Never Used 10/30/23 13:59 Thrive Assessment: Date of Thrive Assessment Date Thrive assessed 10/30/23 10/30/23 13:59 Const General: no acute distress HENMT Head: Yes normal to inspection Ears: hearing grossly normal bilaterally Face and sinus: Yes normal facial exam Mouth: Normal oral and palatal mucosa present Neck Neck: Yes supple Resp Effort & Inspection: normal respiratory effort Auscultation: diminished lung sounds Cardio Rhythm: regular rhythm Heart sounds: S1 normal heart sound present and S2 normal heart sound present GI Inspection: Yes normal to inspection Palpation (GI): Soft to palpation Percussion: Yes normal to percussion Assessment and Plan Assessment & Plan (1) CKD (chronic kidney disease), stage IV: Comment: Follow-up with nephrology Code(s): N18.4 - Chronic kidney disease, stage 4 (severe) Plan: Avoid nephrotoxins follow-up with nephrology (2) COPD (chronic obstructive pulmonary disease): Comment: Continue Trelegy and supplemental O2 Code(s): J44.9 - Chronic obstructive pulmonary disease, unspecified Plan: Continue Trelegy supplemental O2 and albuterol as needed (3) CAD (coronary artery disease): Comment: S/P stent LAD 02/08, medically managed Code(s): I25.10 - Atherosclerotic heart disease of [place] coronary artery without angina pectoris Plan: Continue current medications (4) CHF (congestive heart failure): Comment: Echo EF 25 %. 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
== END 2023-10-30 14:32 | disposition home or self-care (01) ==
PROVIDERS: PCP Internal Medicine; Visit Provider Internal Medicine
DX: N18.4 Chronic kidney disease, stage 4 (severe) (principal); J44.9 Chronic obstructive pulmonary disease, unspecified; I25.10 Atherosclerotic heart disease of native coronary artery without angina pectoris; I50.9 Heart failure, unspecified; S31.809A Unspecified open wound of unspecified buttock, initial encounter
CPT/HCPCS: 99214

== ENCOUNTER 2024-01-04 11:13 | Outpatient (AMB) | payer MEDICARE, SELFPAY ==
[2024-01-04 11:14] VITALS: BP 110/62; PULSE 61; O2SAT 97; BMI 35.6
--- NOTE | 2024-01-04 11:14 | A.OFFPC_ITS ---
Vital Signs 01/04/24 11:14 Height 5 ft 5 in Weight 214 lb BMI 35.6 BP 110/62 Blood Pressure Location Lt brachial Position Sitting Pulse 61 Pulse Source Pulse Oximeter Pulse Oximetry (%) 97 Oxygen Delivery Method Nasal Cannula Intake Visit Reasons: stomach issues Intake Note: Pt is here today for a sick visit. Pt c/o stomach issues. Pt states that she was in and out of the hospital since September. Allergies No Known Allergies Allergy (Verified 01/04/24 11:18) Medication List - Last Reconciled 01/04/24 by Courtney Ding MD albuterol sulfate 0.63 mg inhalation DAILY amlodipine 10 mg PO DAILY aspirin 81 mg PO DAILY atorvastatin 80 mg PO DAILY carvedilol 12.5 mg PO BID cholecalciferol (vitamin D3) 75 mcg PO DAILY clonidine HCl 0.05 mg PO BID PRN ejugijfrykl-yqhvavala-rhxvnrle 200-62.5-25 mcg 1 inh inhalation DAILY furosemide 40 mg (2 x 20 mg) PO DAILY gabapentin 300 mg PO DAILY PRN hydralazine 50 mg PO BID ipratropium-albuterol 0.5 mg-3 mg(2.5 mg base)/3 mL 3 mL inhalation BID isosorbide mononitrate ER 30 mg PO DAILY melatonin 1 mg PO BEDTIME PRN nebulizers As directed omeprazole 20 mg PO DAILY potassium chloride ER 10 mEq PO DAILY sertraline 100 mg PO DAILY tramadol 100 mg PO BEDTIME trazodone 50 mg PO BEDTIME Tobacco use date assessed: 01/04/24 Dental Screening Dental Screen Date: 07/24/23 HPI stomach issues HPI Details Pt for f/u recurrent [facility] hospitalizations for chronic R buttock abcess, f/u with wound clinic, O2 dependent COPD, HTN, CKD 3/4. Patient was diagnosed with AAA at 3.4 cm and left common iliac artery saccular aneurysm at 2.[address] in 3 years was recommended by Radiology. She complains of chronic right knee pain was diagnosed with advanced osteoarthritis but she is not a candidate for a knee replacement surgery due to her comorbidities. Patient is wheelchair-bound but has been working with home physical therapy. She complains of chronic insomnia anxiety and depression but denies suicide ideation. She is in process of getting established with a counselor. [facility] Medical History (Updated 01/04/24 @ 12:04 by Courtney Ding MD) CKD (chronic kidney disease), stage IV Rheumatoid arthritis COPD (chronic obstructive pulmonary disease) CAD (coronary artery disease) CHF (congestive heart failure) Family History Father Hypertension Heart attack Mother Hypertension Cancer of kidney Diabetes Social History Housing: House Patient Tobacco Use Status: Current everyday Tobacco user Tobacco use type: Cigarette Cigarettes Per Day: 5 e-Cigarette/Vaping Use: Never Used service: No Current occupational status: retired Cognitive needs: No Hearing needs: No Vision needs: Yes Questionnaire Thrive Questionnaire Date Thrive assessed: 10/30/23 I am a: Patient What is your living situation today?: I choose not to answer this question Within the past 12 months, did the food you bought not last and you didn't have the money to get more?: I choose not to answer this question Within the past 12 months, did you worry whether your food would run out before you got money to buy more?: I choose not to answer this question THRIVE Score: 0 PANCHO-7 AMB Questionnaire PANCHO-7 Date PANCHO - 7 assessed: 02/20/23 Source: Developed by Drs. Jona Vogel, Mar Parish, Huan Lamb and colleagues, with an educational citlalli from [employer]. Review of Systems Const All systems reviewed & are unremarkable except as noted in HPI and below ENT Reports no additional complaints Card Reports no additional complaints Resp Reports no additional complaints GI Reports no additional complaints Reports no additional complaints Physical exam (Primary Care) Vital Signs: Last Vital Signs Pulse 61 01/04/24 11:14 BP 110/62 01/04/24 11:14 Pulse Ox 97 01/04/24 11:14 Oxygen Delivery Method Nasal Cannula 01/04/24 11:14 BMI result Body Mass Index 35.6 Tobacco/Smoking Status: Tobacco use Status Tobacco use date assessed 01/04/24 01/04/24 11:26 Patient Tobacco Use Status Current everyday Tobacco 01/04/24 11:26 Tobacco use type Cigarette 01/04/24 11:26 e-Cigarette/Vaping Use Never Used 01/04/24 11:26 Thrive Assessment: Date of Thrive Assessment Date Thrive assessed 10/30/23 01/04/24 11:26 HENMT Head: Yes normal to inspection Neck Neck: Yes supple Cardio Rhythm: regular rhythm Heart sounds: S1 normal heart sound present and S2 normal heart sound present GI Inspection: Yes normal to inspection Palpation (GI): Soft to palpation Percussion: Yes normal to percussion Auscultation: normal bowel sounds Coding Level of Care Code Est Pt Level 5 (47350) Complex EM visit Add On G2211 Diagnoses Wound, open, buttock S31.809A Depression F32.A CKD (chronic kidney disease), stage IV N18.4 COPD (chronic obstructive pulmonary disease) J44.9 Essential hypertension I10 AAA (abdominal aortic aneurysm) I71.40 CHF (congestive heart failure) I50.9 Assessment & Plan Assessment & Plan (1) Wound, open, buttock: Comment: hospitalized at [facility] 09/2023 f/u by [facility] wound care Code(s): S31.809A - Unspecified open wound of unspecified buttock, initial encounter Category: Medical Plan: Follow-up with wound clinic at [facility] (2) Depression: Code(s): F32.A - Depression, unspecified Category: Medical Plan: Increase sertraline to 100 mg and trazodone to 100 mg at bedtime, patient will get established with a counselor (3) CKD (chronic kidney disease), stage IV: Comment: Follow-up with nephrology Code(s): N18.4 - Chronic kidney disease, stage 4 (severe) Category: Medical Plan: Avoid nephrotoxins monitor renal function follow-up with nephrology (4) COPD (chronic obstructive pulmonary disease): Comment: Continue Trelegy and supplemental O2 Code(s): J44.9 - Chronic obstructive pulmonary disease, unspecified Category: Medical Plan: Continue inhalers supplemental O2 follow-up with pulmonology (5) Essential hypertension: Code(s): I10 - Essential (primary) hypertension Category: Medical Plan: Continue current medications (6) AAA (abdominal aortic aneurysm): Comment: 3.[address] [facility] 10/2023, repeat CT in 3 years was recommended, seen by [facility] vascular [employer] Code(s): I71.40 - Abdominal aortic aneurysm, without rupture, unspecified Category: Medical Plan: Patient is established with [facility] vascular (7) CHF (congestive heart failure): Comment: Echo EF 25 %. 02/08, ECHO 01/11 mild concentric left ventricular hypertrophy, reduced left ventricular systolic function with ejection fraction of 30-35%, global moderate hypokinesis, apical septal segments are akinetic and mildly aneurysmal, no significant valvular abnormalities, right ventricle normal size and function, comparison to June 2021, there is interval decline in global left ventricular systolic function, /u [facility] cardiology [employer] Code(s): I50.9 - Heart failure, unspecified Category: Medical Plan: Continue current medications follow-up with the Cardiology Medications: New sertraline 100 mg PO DAILY 90 tabs 1RF Changed From hydralazine 50 mg PO BID 180 tabs 1RF To hydralazine 50 mg PO BID From trazodone 50 mg PO BEDTIME 90 tabs 2RF To trazodone 100 mg (2 x 50 mg) PO BEDTIME 180 tabs 2RF Discontinued sertraline Discontinued Reason: Doctor's Order 50 mg PO DAILY 90 tabs 0RF
== END 2024-01-04 12:10 | disposition home or self-care (01) ==
PROVIDERS: PCP Internal Medicine; Visit Provider Internal Medicine
DX: I12.9 Hypertensive chronic kidney disease with stage 1 through stage 4 chronic kidney disease, or unspecified chronic kidney disease (principal); N18.4 Chronic kidney disease, stage 4 (severe); J44.9 Chronic obstructive pulmonary disease, unspecified; I71.40 Abdominal aortic aneurysm, without rupture, unspecified; I50.9 Heart failure, unspecified; S31.809A Unspecified open wound of unspecified buttock, initial encounter; F32.A Depression, unspecified

== ENCOUNTER → 2024-01-04 11:13 | Outpatient (BNVA) | payer MEDICARE, SELFPAY | PROVIDERS: PCP Internal Medicine; Visit Provider Internal Medicine | DX: S31.809A Unspecified open wound of unspecified buttock, initial encounter (principal); F32.A Depression, unspecified; I13.0 Hypertensive heart and chronic kidney disease with heart failure and stage 1 through stage 4 chronic kidney disease, or unspecified chronic kidney disease; N18.4 Chronic kidney disease, stage 4 (severe); I50.9 Heart failure, unspecified; J44.9 Chronic obstructive pulmonary disease, unspecified; I71.40 Abdominal aortic aneurysm, without rupture, unspecified | CPT/HCPCS: 99212 ==

== ENCOUNTER → 2024-07-10 11:45 | Outpatient (BNVA) | payer MEDICARE, SELFPAY | PROVIDERS: PCP Internal Medicine; Visit Provider Internal Medicine ==

== ENCOUNTER 2024-09-02 13:22 | Outpatient (REF) | payer MEDICARE, SELFPAY ==
--- OUTSIDE RECORDS SUMMARY | 2024-09-02 14:44 | XMS_ITS | Clinical Summary ---
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 Mahajan Family History Relation Name Status Comments Brother Alive hypothyroid Father (Age 44) OR, sudden . He had bad Rheum Arthritis Mother (Age 63) kidney can cer, diabetic Sister Alive x3, all hypothy roid Social History Tobacco Use Types Packs/Day Years Used Date Smoking Tobacco: Former Cigarettes Q uit: 10/09/2011 Alcohol Use Standard Drinks/Week Comments No 0 (1 standard drink = 0.6 oz pur e alcohol) Comments Unknown Sex and Gender Information Value Date Recorded Sex Assigned at Not on file Legal Sex Female 9:12 AM EST Gender Identity Not on file Sexual Orientation Not on file Obstetrics History Plan of Treatment Health Maintenance Due Date Last Done Comments Breast Cancer Screening 1950 Zoster Vaccines (1 of 2) 02/25/2002 Pneumococcal Vaccine: 50+ Years (2 of 2 - PCV) 12/26/2005 12/26/2004 DTaP,Tdap,and Td Vaccines (2 - Td or Tdap) 03/27/2018 03/27/2008 COVID-19 Vaccine (1 - 2023-2 5 season) 2023 Influenza Vaccine (#1) 2024 9, 12/07/2008, 12/26/2004 RSV Immunization Adult Patients (1 - 1-dose 75+ series) 02/25/2027 HIB Vaccines Aged Out No longer eligi ble based on patient's age to complete this topic HPV Vaccines Aged Out No longer eligi ble based on patient's age to complete this topic Hepatitis A Vaccines Aged Out No long er eligible based on patient's age to complete this topic Hepatitis B Vaccines Aged Out No long er eligible based on patient's age to complete this topic IPV Vaccines Aged Out No longer eligi ble based on patient's age to complete this topic MMR Vaccines Aged Out No longer eligi ble based on patient's age to complete this topic Meningococcal ACWY Vaccine Aged Out N o longer eligible based on patient's age to complete this topic Meningococcal B Vaccine Aged Out No l onger eligible based on patient's age to complete this topic RSV Immunization Patients Under 20 months Aged Out No longer eligible b ased on patient's age to complete this topic Varicella Vaccines Aged Out No longer eligible based on patient's age to complete this topic Care Teams Typesetter Apprentice Relationship Specialty Start Date End Date Tucker Monreal MD [address] [place] [id number] PCP - General 11/30/12
--- OUTSIDE RECORDS SUMMARY | 2024-09-02 14:44 | XMS_ITS | Patient Health Record ---
[facility] Address [address] [place] [address] Care Team Providers Care Sales Agent Casualty Insurance Name Role Phone Yaneth PURDY, Tigre Primary Care Provider Unavail able Black, Keisha Unavailable [phone] Reason For Referral No Information Medications Medication SIG (Take, Route, Frequency, Duration) Notes Start Date End Date Status predniSONE Active Arava 20mg Active Problems Problem Type SNOMED Code ICD Code Onset Dates Problem Status W/U Status Risk Notes Problem Rheumatoid arthritis (91289115) Arthriis - Rheumatoid (714.0) Active confirmed Problem Ganglion cyst (35730137) Ganglion Cyst (727.43) Active confirmed Problem Acquired deformity of joint of big toe (disorder) (500878638) Hallux Limitus (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.8) Active confirmed Problem Hammer toe (797024733) Hammer toe (735.4) Active confirmed Plan Of Treatment Pending Test Test Name Order Date X ray : Ankle, left 2V 01/17/2011 X ray : Foot, left 3V 01/17/2011 X ray : Foot, right 3V 01/17/2011 Insurance Providers Payer Name Payer Address Payer Phone Subscriber Number Group Number Insured Name Patient Relationship to Insured Coverage Start Date Coverage End Date [facility] [id number] [place] Ann [id number] Saba Hoyos Self - patient is the insured Medical (General) History Medical History History ICD Code Arthritis cancer high blood pressure measles mumps chicken pox transfusions Surgical History Surgery Date(Month/Year) lung surgery 2006 vaginal surgery 2010
--- OUTSIDE RECORDS SUMMARY | 2024-09-02 14:45 | XMS_ITS ---
Author Name [facility] Organization Unknown History of Medication Use Medication Directions Dispensed Refills Start Date End Date Stat cyclobenzaprine 5 mg tablet Take 1 tablet 3 times a day by oral route as needed. 06/26/2024 active oxycodone-acetaminoph en 5 mg-325 mg tablet Take 1 tablet every 6 hours by oral route. 06/26/2024 active methocarbamol 750 mg tablet active oxycodone-acetamino phen 5 mg-325 mg tablet active amlodipine 10 mg tablet TAKE 1 TABLET BY MOUTH ONCE DAILY active amoxicillin 875 mg-potassium clavulanate 125 mg tablet TAKE 1 TABLET BY MOUTH TWICE DAILY active aspirin 81 mg tablet,delayed release TAKE 1 TABLET BY MOUTH ONCE DAILY active atorvastatin 80 mg tablet TAKE 1 TABLET BY MOUTH ONCE DAILY AT BEDTIME active carvedilol 12.5 mg tablet TAKE 1 TABLET BY MOUTH TWICE DAILY active cholecalciferol (vitamin D3) 25 mcg (1,000 unit) tablet TAKE 3 TABLETS BY MOUTH ONCE DAILY active clonidine HCl 0.1 mg tablet TAKE 1 TABLET BY MOUTH IN THE MORNING AND 1 TAB AT NOON AND 1 TAB IN THE EVENING active fluticasone 250 mcg-salmeterol 50 mcg/dose blistr powdr for inhalation INHALE 1 PUFF BY MOUTH TWICE DAILY active furosemide 20 mg tablet TAKE 2 TABLETS BY MOUTH ONCE DAILY active furosemide 40 mg tablet TAKE 1 TABLET BY MOUTH IN THE MORNING active gabapentin 300 mg capsule TAKE 1 CAPSULE BY MOUTH ONCE DAILY active hydralazine 50 mg tablet TAKE 1 TABLET BY MOUTH TWICE DAILY active isosorbide mononitrate ER 30 mg tablet,extended release 24 hr TAKE 1 TABLET BY MOUTH ONCE DAILY active leflunomide 20 mg tablet TAKE 1 TABLET BY MOUTH ONCE DAILY active methocarbamol 750 mg tablet Take by oral route for 5 days. active mirtazapine 15 mg tablet TAKE 1 TABLET BY MOUTH AT BEDTIME active oxycodone 5 mg tablet TAKE 1 TABLET BY MOUTH EVERY 8 HOURS NEEDED FOR PAIN active pantoprazole 20 mg tablet,delayed release TAKE 1 TABLET BY MOUTH BEFORE BREAKFAST active potassium chloride ER 10 mEq tablet,extended release TAKE 1 TABLET BY MOUTH ONCE DAILY active prednisone 5 mg tablet TAKE 1 TABLET BY MOUTH TWICE DAILY WITH FOOD active sertraline 100 mg tablet TAKE 1 TABLET BY MOUTH ONCE DAILY active sertraline 50 mg tablet TAKE 1 TABLET BY MOUTH ONCE DAILY active tramadol 50 mg tablet TAKE 2 TABLETS BY MOUTH ONCE DAILY BEFORE BEDTIME active trazodone 50 mg tablet TAKE 2 TABLETS BY MOUTH AT BEDTIME active Allergies Allergen Reaction Severity Comment Documented Date Source Statu s CYCLOBENZAPRINE HALLUCINATIONS [facility] T Problems Problem Status Onset Date Problem Type Date of Resoluti on Source Compression fracture of thoracic spine active 2024-06-26 ProblemAct [facility] Pain in thoracic spine active 2024-07-07 ProblemAct [facility] Ankle pain active 2024-07-07 ProblemAct [facility] ECT Closed pilon fracture active 2024-06-26 ProblemAct [facility] Encounters Encounter Type Encounter Reason Primary Diagnosis Location Date Ambulatory [facility] [place] 08/08/2024 [facility] 08/07/2024 [facility] [place] 08/06/2024 [facility] [place] 08/06/2024 [facility] [place] 07/27/2024 [facility] [place] 07/03/2024 [facility] [place] 06[facility]27/2024 [facility]ulatory [facility] [place] 06/26/2024 [facility] [place] 06/26/2024 [facility]ulatory [facility] [place] 06/26/2024 [facility] [place] 06/26/2024
--- OUTSIDE RECORDS SUMMARY | 2024-09-02 14:45 | XMS_ITS | Clinical Summary ---
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 Name Role Phone Courtney Ding MD Primary Care Provider [phone] Allergies Active Allergy Reactions Criticality Noted Date Comments Dust Mite Extract 11/10/2021 Other reaction(s): stuffy Mixed Ragweed 11/10/2021 Other reaction(s): stuffy Molds & Smuts 11/10/2021 Other reaction(s): stuffy Medications amLODIPine (NORVASC) 10 MG tablet Take 1 tablet by mouth 1 (one) time each day 11/08/2011 Active atorvastatin (LIPITOR) 80 MG tablet 01/18/2023 Active Trelegy Ellipta 200-62.5-25 MCG/ACT aerosol powder 01/18/2023 Active furosemide (LASIX) 20 MG tablet Take 40 mg by mouth 1 (one) time each day 01/18/2023 Active isosorbide mononitrate (IMDUR) 30 MG 24 hr tablet 01/18/2023 Active omeprazole (PriLOSEC) [address] capsule 01/18/2023 Active traMADol (ULTRAM) 50 MG tablet Take 100 mg by mouth every night 11/15/2022 Active traZODone (DESYREL) 50 MG tablet Take 50 mg by mouth at bed time 01/18/2023 Active predniSONE 5 MG tablet Take 5 mg by mouth in the morning and 5 mg in the evening. Take with meals. 11/16/2022 Active aspirin (ST RACHEL) 81 MG EC tablet Take 81 mg by mouth 1 (one) time each day Active carvedilol (COREG) 12.5 MG tablet Take 12.5 mg by mouth in the morning and 12.5 mg in the evening. Take with meals. Active sertraline (ZOLOFT) 50 MG tablet Take 50 mg by mouth 1 (one) time each day 06/01/2023 Active hydrALAZINE 25 MG tablet Take 25 mg by mouth in the morning and 25 mg in the evening. Active cloNIDine (CATAPRES) 0.1 MG tablet Take 1 tablet (0.1 mg total) by mouth in the morning and 1 tablet (0.1 mg total) at noon and 1 tablet (0.1 mg total) in the evening. 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 Garcias; f/u q6mo Tobacco user 10/05/2011 Non-small cell lung cancer 12/02/2009 Resolved Problems Problem Noted Date Diagnosed Date Resolved Date Tumor finding 11/10/2021 11/10/2021 Obese class II 11/10/2021 11/10/2021 History of reduction of breast 11/10/2021 11/10/2021 Prolonged QT interval 10/05/20112021 Overview (11/10/2021): Borderline, on EKG 10/05/11 Depressive disorder 07/11/2010 11/11/19 22 Rhinitis 08/09/2009 11/10/2021 Overview (11/10/2021): Dr Rodriguez Rheumatoid arthritis 02/02/2005 022 Overview (11/10/2021): Sees Dr. Dawit Mahajan MD. Had been better on rituxan. Encounters Date Type Department Care Team Description 06/27/2024 Orders Only [facility] [address] [place] [address] Davonte Brock MD Stage 3a chronic kidney disease (HCC) from Last 3 Months Immunizations Immunization Administration Dates Next Due Pneumococcal Polysaccharide 12/26/2004 Tdap 03/27/2008 Social History Tobacco Use Types Packs/Day Years Used Date Smoking Tobacco: Some Days Cigarettes Passive Smoke Exposure: Never Smokeless Tobacco: Never Tobacco Cessation:Ready to Q uit: No; Counseling Given: No Alcohol Use Standard Drinks/Week Comments Never 0 (1 standard drink = 0.6 oz pur e alcohol) Comments Unknown Sex and Gender Information Value Date Recorded Sex Assigned at Not on file Legal Sex Female 11:38 AM EDT Gender Identity Not on file Sexual Orientation Not on file Last Filed Vital Signs Vital Sign Reading Time Taken Comments Blood Pressure 147/94 08/28/2023 3:04 PM EDT Pulse 70 08/28/2023 3:04 PM EDT Temperature - - Respiratory Rate - - Oxygen Saturation 96% 08/28/2023 3:04 PM EDT Inhaled Oxygen Concentration - - Weight 93.9 kg (207 lb) 08/28/2023 3:04 PM EDT Height 165.1 cm (5' 5 ) 08/28/2023 3:04 PM EDT Body Mass Index 34.45 08/28/2023 3:04 PM EDT Plan of Treatment Health Maintenance Due Date Last Done Comments Breast Cancer Screening 1950 Colorectal Cancer Screening: Annual FOBT 02/25/2001 Colorectal Cancer Screening: Colonoscopy 02/25/2001 Colorectal Cancer Screening: Sigmoidoscopy 02/25/2001 Pneumococcal Vaccine: 50+ Ye ars (2 of 2 - PCV) 12/26/2005 12/26/2004 Influenza Vaccine (#1) 2024 Hepatitis B Vaccine Aged Out No longe r eligible based on patient's age to complete this topic Insurance Medicare Medicare Care Teams Flag Football Coach Relationship Specialty Start Date End Date Courtney Ding MD [address] [place] [address] PCP - General Internal Medicine 08/28/23
--- OUTSIDE RECORDS SUMMARY | 2024-09-02 14:45 | XMS_ITS | Data Portability ---
Author Organization [place] [facility] A[facility]a [place] Address [address] [place] [address] Care Team Providers Care Licensed Psychologist Manager Name Role Phone JORGE LUIS JUAN Primary Care Provider JORGE LUIS JUAN Referring Provider [phone] Assessment Encounter Date Assessment Date Assessment LastModified by Organization Details LastModified Time 06/26/2024 06/26/2024 Will attendShe has a nondisplaced pilon fracture of the right lower extremity and a T11 compression fracture. We discussed operative versus nonoperative management. Given her multiple medical comorbidities treating this nonoperatively at this time. She was placed into a nonweightbearing cast of the right lower extremity. We will plan to see her back in 2 weeks for repeat assessment. If there is concerns at that time we will obtain a CT for likely TTC. She is interested in kyphoplasty however again with her medical comorbidities this is likely not an ideal option. She would like a TLSO brace As she feels that she needs some sort of support. I'm not sure how she will tolerate this. Prescription provided. Will send her short supply of Percocet and methocarbamol. Follow-up in 2 weeks with our team and with the spine team. Patient was seen and evaluated by Keny Aguilar PA-C in indirect conjunction with Documenting Provider: Karen Lake MD He/She agrees with history, physical examination, tests/diagnostic imaging, and treatment plan [email or web address] Not available 06/26/2024 14:51:36 07/07/2024 07/07/2024 74-year-old fema le with complex medical history and multiple chronic comorbidities returns to the office today for follow-up evaluation of acute T11 compression fracture status post fall on 06/21/2024. She was evaluated in our urgent care facility on 06 26 for both her back as well as right ankle fracture. They are all in good spirits and happy to report she is slowly improving. The patient feels her pain as well as her mobility has improved a bit. She uses a wheelchair at baseline for comfort and convenience. She is on chronic oxygen. They discontinued the Percocet and cyclobenzaprine as these both had undesirable side effects. She is using Tylenol and ibuprofen for pain as needed. She denies radicular pain, low back pain, or leg pain. They were given a prescription for a TLSO, however the patient is not enthusiastic about the rigidity of this and they are going to trial a soft brace instead. EXAM Upon exam patient is alert oriented x 3. No acute distress. She is wearing an O2 nasal cannula. She presents in a wheelchair and appears notably deconditioned. She is wearing a weightbearing cast on the right distal lower extremity. She spontaneously moves all 4 extremities. She leans forward with a kyphotic posture. She is neurologically intact PLAN 74-year-old female with T10-11 compression fracture now 2 weeks status post fall. Her condition is slowly improving. I reviewed the natural history of compression fractures and we discussed treatment options. Will continue with activity modification and observation. Encouraged short frequent walks with her walker as tolerated. She will be cautious with other activities. She will follow-up with me in 6 weeks. She will follow-up for her ankle fracture in 2 weeks as planned. Questions invited and answered. Patient/family verbalizes understanding and agreement with plan. Patient was seen and evaluated by Margarito Zaidi PA-C in indirect conjunction with Documenting Provider: Eduardo Negron MD He/She agrees with history, physical examination, tests/diagnostic imaging, and treatment plan. Not available 07/07/2024 14:48:48 08/07/2024 08/07/2024 I think her imaging is most consistent with a medial malleolus fracture. This remains nondisplaced and her mortise remains congruent on her imaging. However, she does have severe planovalgus deformity so are certainly concerned about this going on to displacement. I have transitioned her to a boot today and she may do what she was doing in the cast which is that she may transfer in her boot. She will otherwise remain predominately nonweightbearing. She will follow-up in 4 weeks for repeat evaluation repeat x-rays of her right ankle. Patient was prescribed a tall cam boot for above diagnosis. The patient is ambulatory but has weakness and/or instability of their Right ankle which requires stabilization from this semi-rigid / rigid orthosis to improve their function. Not available 08/07/2024 19:16:40 Plan of Treatment Reminders Order Date Submit Date Provider Last Modified By Organization Details Last Modified Time Details Appointments FOLLOW UP 2024 02:00P M Karen Lake MD Not available Not available Not available Lab None recorded. Referral None recorded. Procedures None recorded. Surgeries None recorded. Imaging XR, ankle, 3 or more view 2024 025 [email or web address], [address], [address], [place], [address], 08/07/2024 19:08:06 XR, thoracic spine, 2 view 2024 025 [facility], [address], [address], [place], [address], 06/26/2024 14:55:45 XR, ankle, 3 or more view 2024 025 [facility], [address], [address], [place], [address], 06/26/2024 14:55:45 Medication Orders oxycodone -acetamin ophen 5 mg-325 mg tablet 2024 025 [facility] [address], [address] [place] [address], [id number], 06/26/2024 14:32:42 methocarb latosha 750 mg tablet 2024 025 [facility] [address], [address] [place] [address], [id number], 06/26/2024 16:13:40 Patient TargetsNo targets recorded. Patient Instructions Encounter Date Encounter Id Patient Instructions Last Modified By Organization Details Last Modified Time 06/26/2024 [id number] Nonweightbearing x-rays of the right ankle were obtained on 06/26/2024 which demonstrates a medial malleolus fracture that is minimally displaced with extension likely into the tibia consistent with pilon fracture. X-rays of the thoracic spine demonstrate a T11 compression fracture and multilevel degenerative changes [email or web address] Not available 06/26/2024 14:52:01 07/07/2024 [id number] Nonweightbearing x-rays of the right ankle were obtained on 06/26/2024 which demonstrates a medial malleolus fracture that is minimally displaced with extension likely into the tibia consistent with pilon fracture. X-rays of the thoracic spine demonstrate a T11 compression fracture and multilevel degenerative changes Not available 07/07/2024 14:45:02 08/07/2024 [id number] 3 views of the r ight ankle obtained nonweightbearing on 08/07/2024 demonstrate a complete medial malleolus fracture. The mortise remains congruent. Not available 08/07/2024 19:13:23 Reason for Referral None Reported. Problems Name Problem SNOMED Code Status Onset Date Resolution Date Notes Provider Name and Address Organization Details Recorded Time Compression fracture of thoracic spine 216493754 Active [address], [place], [address], [place] [facility] 5 14:31:41 Closed pilon fracture 293180851 Active [address], [place], [address], [place] [facility], [facility] 5 14:31:50 Ankle pain 375944054 Active [address], [place], [address], [place] [facility], P 5 14:45:03 Pain in thoracic spine 447240202 Active [address], [place], [address], [facility], P 14:45:03 Problem Notes None recorded. Procedures Surgical History Date Name Laterality Status Provider Name and Address Organization Details Recorded Time 06/26/2024 Cast Short Leg 11+ completed KENY AGUILAR PA-C [address], [place], [address], [facility] 06/26/2024 14:52:07 Imaging Results None recorded. Procedure Notes None recorded. Medical Equipment None Reported. Allergies Allergen ID Allergen Name Allergen Category Reaction Reaction Severity Criticality Documentation Date Start Date Code Code System Note Provider Name and Address Organization Details Recorded Time cyclobenz aprine medicatio n hallucina tions Not available Not available 07/07/2024 09159 RxNorm Ava Ingrams[facility], [facility], P 13:42:44 Medications Name Sig Start Date Stop Date Status Note LastModified by Organization Details LastModified Time furosemide 40 mg tablet TAKE 1 TABLET BY MOUTH IN THE MORNING active Not Available Not Available No t Available fluticasone 250 mcg-salmetero l 50 mcg/dose blistr powdr for inhalation INHALE 1 PUFF BY MOUTH TWICE DAILY active Not Available Not Available No t Available atorvastatin 80 mg tablet TAKE 1 TABLET BY MOUTH ONCE DAILY AT BEDTIME active Not Available Not Available No t Available clonidine HCl 0.1 mg tablet TAKE 1 TABLET BY MOUTH IN THE MORNING AND 1 TAB AT NOON AND 1 TAB IN THE EVENING active Not Available Not Available No t Available carvedilol 12.5 mg tablet TAKE 1 TABLET BY MOUTH TWICE DAILY active Not Available Not Available No t Available trazodone 50 mg tablet TAKE 2 TABLETS BY MOUTH AT BEDTIME active Not Available Not Available No t Available isosorbide mononitrate ER 30 mg tablet,extend ed release 24 hr TAKE 1 TABLET BY MOUTH ONCE DAILY active Not Available Not Available No t Available sertraline 100 mg tablet TAKE 1 TABLET BY MOUTH ONCE DAILY active Not Available Not Available No t Available prednisone 5 mg tablet TAKE 1 TABLET BY MOUTH TWICE DAILY WITH FOOD active Not Available Not Available No t Available potassium chloride ER 10 mEq tablet,extend ed release TAKE 1 TABLET BY MOUTH ONCE DAILY active Not Available Not Available No t Available aspirin 81 mg tablet,delaye d release TAKE 1 TABLET BY MOUTH ONCE DAILY active Not Available Not Available No t Available leflunomide 20 mg tablet TAKE 1 TABLET BY MOUTH ONCE DAILY active Not Available Not Available No t Available tramadol 50 mg tablet TAKE 2 TABLETS BY MOUTH ONCE DAILY BEFORE BEDTIME active Not Available Not Available No t Available pantoprazole 20 mg tablet,delaye d release TAKE 1 TABLET BY MOUTH BEFORE BREAKFAST active Not Available Not Available No t Available oxycodone-imelda taminophen 5 mg-325 mg tablet Take 1 tablet every 6 hours by oral route. 2024 active Not Available Not Available Not Avai lable methocarbamol 750 mg tablet Take by oral route for 5 days. 2024 active Not Available Not Available Not Avai lable amlodipine 10 mg tablet TAKE 1 TABLET BY MOUTH ONCE DAILY active Not Available Not Available No t Available gabapentin 300 mg capsule TAKE 1 CAPSULE BY MOUTH ONCE DAILY active Not Available Not Available No t Available hydralazine 50 mg tablet TAKE 1 TABLET BY MOUTH TWICE DAILY active Not Available Not Available No t Available furosemide 20 mg tablet TAKE 2 TABLETS BY MOUTH ONCE DAILY active Not Available Not Available No t Available mirtazapine 15 mg tablet TAKE 1 TABLET BY MOUTH AT BEDTIME active Not Available Not Available No t Available sertraline 50 mg tablet TAKE 1 TABLET BY MOUTH ONCE DAILY active Not Available Not Available No t Available amoxicillin 875 mg-potassium clavulanate 125 mg tablet TAKE 1 TABLET BY MOUTH TWICE DAILY active Not Available Not Available No t Available oxycodone 5 mg tablet TAKE 1 TABLET BY MOUTH EVERY 6 HOURS NEEDED FOR PAIN FOR 7 DAYS active Not Available Not Available No t Available cyclobenzapri ne 5 mg tablet TAKE 1 TABLET BY MOUTH THREE TIMES DAILY NEEDED active Not Available Not Available No t Available cholecalcifer ol (vitamin D3) 25 mcg (1,000 unit) tablet TAKE 3 TABLETS BY MOUTH ONCE DAILY active Not Available Not Available No t Available Vitals None Recorded Social History None recorded. Functional Status None recorded. Mental Status None recorded. Family History Nothing Reported. Medical History No medical history recorded. Gynecological HistoryNo gynecological history recorded. Obstetrics History GPAL:G 0 P 0 0 0 0 Past Encounters Encounter ID Performer Location Encounter Start Date Encounter Closed Date Diagnosis/Indication Diagnosis SNOMED-CT Code Diagnosis ICD10 Code Diagnosis Note [id number] [address] [facility] [address] [place] [address] 06/26/2024 13:36:11 06/26/2024 14:55:45 Ankle pain 182116317 M25.571 Pain in th oracic spine 108917612 M54.6 Compressio n fracture of thoracic spine 158961999 S22.080A Closed pilon fracture 44 4449306 S82.874A [id number] MARGARITO ZAIDI PA-C [address] [address] 07/07/2024 13:31:45 07/07/2024 13:57:15 Compression fracture of thoracic spine 116185426 S22.080A Pain in th oracic spine 268017705 M54.6 [id number] Karen Lake MD [address] [address] 08/07/2024 16:11:00 08/07/2024 17:00:29 Closed pilon fracture 992321267 S82.874A Health Concerns Section Related Observation LastModified by Organization Detai ls LastModified Time None Recorded Concern Status LastModified by Organization Details LastModified Time None Recorded Advance Directives Directive None Recorded Payers Insurance Date Sequence Insurance Name Policy Number Policy Cal[employer] Covered Member ID Calix Member ID Guarantor Name 08/08/2024 1 MEDICARE B-CT: NGS Saba Hoyos [id number] Saba Hoyos 08/08/2024 [employer] - SPECIALITY CLAIMS (MEDICARE [facility] A) Saba Hoyos [id number] Saba Hoyos Notes Date Note Type Note Provider Name and Address Organization Details Recorded Time 06/26/2024 text/html date of injury: 06/21/2024 Saba Gutierrez is a 74-year-old female who presents as a walk-in patient today for evaluation of her right ankle and her low back.On the above date she had a fall at home while Trying to get up from her wheelchair. Her legs did not feel numb at the time however when she went to stand her right leg felt numb causing her leg to give out and her to fall. She was not evaluated initially and waited a couple of days prior to presenting to [facility]. She was diagnosed with an ankle fracture and compression fracture of the thoracic spine.Her pain in both areas is an 8 to a 10 on average. This pain is aching, burning, shooting, stabbing and sharp in nature. Her pain is worse with motion, weightbearing and palpation.She has been applying thermal modalities and taking oxycodone without any improvement in symptoms.She has a medical history significant for prior blood clot in an unknown area only on aspirin, prior breast cancer, vulvar cancer and lung cancer. She also has history of gout, prior heart attack, heart disease, hypertension, rheumatoid arthritis on a daily dose of prednisone, kidney disease, peripheral vascular disease and acid reflux.She does still smoke. She does not drink alcohol. Karen Lake MD [address], [place], [address], [facility] 06/26/2024 21:04:58 08/07/2024 text/html Date of injury: 06/21/2024 Saba Gutierrez is a 74-year-old female who presents today for follow-up evaluation now approximately 6 weeks status post her right ankle fracture. She presents today with her son and her daughter. She reports that she is not having any pain in her ankle. She does report that she has ongoing back pain. At baseline, she is on 4 L of oxygen. She is a home ambulator only. She reports that her falls are typically secondary to her left leg giving out on her secondary to her weakness from her spine. From 06/26/24 (TK): as a walk-in patient today for evaluation of her right ankle and her low back.On the above date she had a fall at home while Trying to get up from her wheelchair. Her legs did not feel numb at the time however when she went to stand her right leg felt numb causing her leg to give out and her to fall. She was not evaluated initially and waited a couple of days prior to presenting to [facility]. She was diagnosed with an ankle fracture and compression fracture of the thoracic spine.Her pain in both areas is an 8 to a 10 on average. This pain is aching, burning, shooting, stabbing and sharp in nature. Her pain is worse with motion, weightbearing and palpation.She has been applying thermal modalities and taking oxycodone without any improvement in symptoms.She has a medical history significant for prior blood clot in an unknown area only on aspirin, prior breast cancer, vulvar cancer and lung cancer. She also has history of gout, prior heart attack, heart disease, hypertension, rheumatoid arthritis on a daily dose of prednisone, kidney disease, peripheral vascular disease and acid reflux.She does still smoke. She does not drink alcohol. Karen Lake MD [address], [place], [address], [place] [facility] 08/07/2024 19:17:05 OBGyn Episode No OBEpisode recorded.
[2024-09-02 16:25] LABS: MANUAL DIFF FLAG NO
[2024-09-02 16:32] LABS: Hematocrit 38.7 % (37.0-47.0); Hemoglobin 12.4 g/dl (12.0-16.0); Imm Gran Abs Auto 0.07 X10*3/uL (0.00-0.03); Imm Gran Pct Auto 0.7 % (0.0-0.4); Lymphocytes Absolute Auto 1.6 X10*3/uL (1.2-4.9); Mean Corpuscular HGB Conc 32.0 g/dl (31.0-35.0); Mean Corpuscular Hemoglobin 31.8 pg (27.0-33.0); Mean Corpuscular Volume 99.2 fL (80.0-98.0); NRBC Abs Auto 0.000 X10*3/uL (0.0-0.012); NRBC Pct Auto 0.0 /100WBC (0.0-0.2); Platelet Count 214 X10*3/uL (160-400); Red Blood Count 3.90 X10*6/uL (4.20-5.50); White Blood Count 10.0 X10*3/uL (4.8-10.8)
[2024-09-02 16:54] LABS: Hemoglobin A1C 117.2271 umol/L; Total Hemoglobin (HGBA1C) 4187.1933 umol/L
[2024-09-02 17:01] LABS: Alanine Aminotransferase 7 U/L (0-31); Albumin Level 2.8 g/dL (3.5-5.0); Alkaline Phosphatase 102 U/L (39-117); Anion Gap 16 (12-20); Aspartate Amino Transferase 26 U/L (5-31); Blood Urea Nitrogen 25 mg/dL (9-16); Calcium 8.4 mg/dL (8.4-10.2); Carbon Dioxide 16 mmol/L (22-29); Chloride 108 mmol/L (96-108); Cholesterol 237 mg/dL (<200); Estimated Glomerular Filt Rate 22; HDL Cholesterol 22 mg/dL (>40); Potassium 3.4 mmol/L (3.3-5.1); Sodium 137 mmol/L (135-145); Total Protein 6.6 g/dL (6.5-8.0); Triglycerides 438 mg/dL (<150)
== END 2024-09-02 13:23 | disposition home or self-care (01) ==
LOC: HO.HMGCLDS 13:22
PROVIDERS: PCP Internal Medicine; Visit Provider Internal Medicine
DX: I13.0 Hypertensive heart and chronic kidney disease with heart failure and stage 1 through stage 4 chronic kidney disease, or unspecified chronic kidney disease (principal); I50.9 Heart failure, unspecified; N18.4 Chronic kidney disease, stage 4 (severe); I71.40 Abdominal aortic aneurysm, without rupture, unspecified; M06.9 Rheumatoid arthritis, unspecified; J44.9 Chronic obstructive pulmonary disease, unspecified; Z79.899 Other long term (current) drug therapy; Z13.31 Encounter for screening for depression
CPT/HCPCS: 36415; 80053; 80061; 83036; 85025; 96127; 99212

== ENCOUNTER 2024-09-02 13:35 | Outpatient (AMB) | payer MEDICARE, SELFPAY ==
[2024-09-02 13:52] VITALS: BP 94/60; PULSE 75; RESP 20; TEMP 36.6; O2SAT 94
--- NOTE | 2024-09-02 13:52 | A.OFFPC_ITS ---
Vital Signs 09/02/24 13:52 Height 5 ft 5 in BMI Reason not done Patient refused/unable BP 94/60 Blood Pressure Location Lt brachial Position Sitting Respiration 20 Pulse 75 Pulse Source Pulse Oximeter Temp 97.8 F Temp Source Oral Pulse Oximetry (%) 94 Oxygen Delivery Method Nasal Cannula Intake Visit Reasons: Followup Intake Note: Pt is here today for a follow up visit. Allergies No Known Allergies Allergy (Verified 09/02/24 13:53) Medication List - Last Reconciled 09/02/24 by Courtney Ding MD albuterol sulfate 0.63 mg inhalation DAILY amlodipine 10 mg PO DAILY aspirin 81 mg PO DAILY atorvastatin 80 mg PO DAILY carvedilol 12.5 mg PO BID cholecalciferol (vitamin D3) 75 mcg PO DAILY uorfpwcqvxh-ytkhhfvii-mvsjpiau 200-62.5-25 mcg 1 inh inhalation DAILY furosemide 40 mg (2 x 20 mg) PO DAILY gabapentin 300 mg PO DAILY hydralazine 50 mg PO BID ipratropium-albuterol 0.5 mg-3 mg(2.5 mg base)/3 mL 3 mL inhalation BID isosorbide mononitrate ER 30 mg PO DAILY melatonin 1 mg PO BEDTIME PRN mirtazapine 15 mg PO BEDTIME nebulizers As directed omeprazole 20 mg PO DAILY potassium chloride ER 10 mEq PO DAILY sertraline 100 mg PO DAILY trazodone 100 mg (2 x 50 mg) PO BEDTIME Tobacco use date assessed: 09/02/24 Fall risk assessment: 2 + Falls in past year Last assessed Fall Risk: 09/02/24 Dental Screening Dental Screen Date: 09/02/24 Did you have a dental visit in the last 12 months?: No Did you have a dental problem in the last 6 months where you did not have access to dental care?: No Was dental information given to patient?: Patient declined HPI Followup HPI Details Patient presents for the follow-up on hypertension hyperlipidemia chronic kidney disease stage 4, O2 dependent COPD, heart failure with preserved ejection fraction, chronic depression. She fell down and broke her right ankle in the beginning of June and established with orthopedic surgeon (DAVID) She has a follow-up appointment in 1 week. Patient has been wearing a hard ankle brace. [facility] Medical History (Updated 09/02/24 @ 14:40 by Courtney Ding MD) CKD (chronic kidney disease), stage IV Rheumatoid arthritis COPD (chronic obstructive pulmonary disease) CAD (coronary artery disease) CHF (congestive heart failure) Family History Father Hypertension Heart attack Mother Hypertension Cancer of kidney Diabetes Social History Housing: House Patient Tobacco Use Status: Current everyday Tobacco user Tobacco use type: Cigarette Cigarettes Per Day: 5 e-Cigarette/Vaping Use: Never Used service: No Current occupational status: retired Cognitive needs: No Hearing needs: No Vision needs: Yes Questionnaire PHQ-9 Over the last 2 weeks, how often have you been bothered by any of the following problems? 1. Little interest or pleasure in doing things: not at all 2. Feeling down, depressed, or hopeless: not at all 3. Trouble falling or staying asleep, or sleeping too much: not at all 4. Feeling tired or having little energy: not at all 5. Poor appetite or overeating: not at all 6. Feeling bad about yourself - or that you are a failure or have let yourself or your family down: not at all 7. Trouble concentrating on things, such as reading the newspaper or watching television: not at all 8. Moving or speaking so slowly that other people could have noticed. Or the opposite - being so fidgety or restless that you have been moving around a lot more than usual: not at all 9. Thoughts that you would be better off or of hurting yourself in some way: not at all Total score: 0 Depression Screening Interpretation: Negative Depression Screening Done: Yes 64321 - PHQ-9 Billing: Yes Source: Developed by Drs. Jona Vogel, Huan Powers and colleagues, with an educational citlalli from [employer] Thrive Questionnaire Date Thrive assessed: 10/30/23 AUDIT C Alcohol Use Questionnaire (AUDIT-C) 1. How often do you have a drink containing alcohol?: Never 3. How often do you have six or more drinks on one occasion?: Never Total Score: 0 PANCHO-7 AMB Questionnaire PANCHO-7 Date PANCHO - 7 assessed: 09/02/24 Source: Developed by Drs. Jona LMar Conti, Huan Lamb and colleagues, with an educational citlalli from [employer]. Review of Systems Const All systems reviewed & are unremarkable except as noted in HPI and below ENT Reports no additional complaints Card Reports no additional complaints Resp Reports no additional complaints GI Reports no additional complaints Reports no additional complaints Physical exam (Primary Care) Vital Signs: Last Vital Signs Temp 97.8 F 09/02/24 13:52 Pulse 75 09/02/24 13:52 Resp 20 09/02/24 13:52 BP 94/60 09/02/24 13:52 Pulse Ox 94 09/02/24 13:52 Oxygen Delivery Method Nasal Cannula 09/02/24 13:52 Tobacco/Smoking Status: Tobacco use Status Tobacco use date assessed 09/02/24 09/02/24 13:59 Patient Tobacco Use Status Current everyday Tobacco 09/02/24 13:53 Tobacco use type Cigarette 09/02/24 13:53 e-Cigarette/Vaping Use Never Used 09/02/24 13:53 PHQ-9: PHQ-9 Score PHQ-9: Total score 0 09/02/24 13:59 Depression Screening Interpretation: Negative Thrive Assessment: Date of Thrive Assessment Date Thrive assessed 10/30/23 09/02/24 13:53 Const General: no acute distress HENMT Face and sinus: Yes normal facial exam Resp Effort & Inspection: normal respiratory effort Auscultation: diminished lung sounds Cardio Rhythm: regular rhythm Heart sounds: S1 normal heart sound present and S2 normal heart sound present GI Inspection: Yes normal to inspection Palpation (GI): Soft to palpation Percussion: Yes normal to percussion Auscultation: normal bowel sounds Extrem General: Yes no clubbing, cyanosis or edema Coding Level of Care Code Est Pt Level 4 (69997) Complex EM visit Add On G2211 Diagnoses Essential hypertension I10 CKD (chronic kidney disease), stage IV N18.4 CHF (congestive heart failure) I50.9 AAA (abdominal aortic aneurysm) I71.40 Rheumatoid arthritis M06.9 COPD (chronic obstructive pulmonary disease) J44.9 Additional Codes PHQ-9 - 84224 - PHQ-9 Billing: Yes ([id number]) Assessment & Plan Assessment & Plan (1) Essential hypertension: Code(s): I10 - Essential (primary) hypertension Category: Medical Plan: Continue current medications. Patient was advised to monitor her blood pressure at home record the readings and send information for patient portal. The blood pressure is persistently low amlodipine will be decreased to 5 mg. Follow-up with Nephro (2) CKD (chronic kidney disease), stage IV: Comment: Follow-up with nephrology Code(s): N18.4 - Chronic kidney disease, stage 4 (severe) Category: Medical Plan: Avoid nephrotoxins monitor renal function follow-up with nephrology (3) CHF (congestive heart failure): Comment: ECHO 01/11 mild concentric left ventricular hypertrophy, reduced left ventricular systolic function with ejection fraction of 30-35%, global moderate hypokinesis, apical septal segments are akinetic and mildly aneurysmal, no significant valvular abnormalities, right ventricle normal size and function, comparison to June 2021, there is interval decline in global left ventricular systolic function, /u [facility] cardiology [employer]ANS [employer] Code(s): I50.9 - Heart failure, unspecified Category: Medical Plan: Continue current medications follow-up with basic Cardiology (4) AAA (abdominal aortic aneurysm): Comment: 3.[address] [facility] 10/2023, repeat CT in 3 years was recommended, seen by [facility] vascular [employer] Code(s): I71.40 - Abdominal aortic aneurysm, without rupture, unspecified Category: Medical Plan: Follow-up with [facility] Cardiology (5) Rheumatoid arthritis: Comment: on Prednisone x 15 yrs Code(s): M06.9 - Rheumatoid arthritis, unspecified Category: Medical Plan: Follow-up with rheumatology (6) COPD (chronic obstructive pulmonary disease): Comment: Continue Trelegy and supplemental O2 Code(s): J44.9 - Chronic obstructive pulmonary disease, unspecified Category: Medical Plan: Continue Trelegy supplemental O2 and albuterol as needed Medications: New miscellaneous medical supply check BP daily 1 ea 0RF I10 - Essential (primary) hypertension, I50.9 - Heart failure, unspecified, N18.4 - Chronic kidney disease, stage 4 (severe) Discontinued mirtazapine Discontinued Reason: Doctor's Order 15 mg PO BEDTIME 90 tabs 1RF
== END 2024-09-02 14:42 | disposition home or self-care (01) ==
LOC: HO.HMCC 13:35
PROVIDERS: PCP Internal Medicine; Visit Provider Internal Medicine
DX: I12.9 Hypertensive chronic kidney disease with stage 1 through stage 4 chronic kidney disease, or unspecified chronic kidney disease (principal); N18.4 Chronic kidney disease, stage 4 (severe); I50.9 Heart failure, unspecified; M06.9 Rheumatoid arthritis, unspecified; J44.9 Chronic obstructive pulmonary disease, unspecified; I71.40 Abdominal aortic aneurysm, without rupture, unspecified